=== PATIENT | female | born 1955 | race Caucasian/White ===

== ENCOUNTER 2018-06-18 08:02 | Day surgery (SDC) | payer BC, OTHER ==
[2018-06-18] MEDS ORDERED: Ringers Lactate 1,000 ML IV ONE (08:34)
[2018-06-18] MEDS ORDERED: LIDOCAINE 1% W/EPI 1:100,000 MDV 50 ML VIAL ONE (09:09)
--- OUTSIDE RECORDS SUMMARY | 2018-06-18 09:10 | XMS REPORT | Continuity of Care Document ---
:1955 Author Organization Interface Problems Problem Status Onset Classification Date Comments Source Date Reported S06.9X9A - UNSP Active 03/19/20 [facility] INTRACRANIAL 17 [place] INJURY W LO LEFT OCCIPITAL Active 03/09/20 [facility] SKULL FX S/P 17 Medical FALL IN BATH Center HTN (<span Resolved Problem 03/23/2017 [facility] ID="[id number] [facility] ">Confirmed</spa [place] n>) [facility] Hypertension Resolved Problem 03/23/2017 [facility] TRAUM SUBRAC HEM Active [facility] LOC OF UNSP Medical DURATION, Center Medications Medication Details Route Status Patient Ordering Order Source Instructions Provider Date Levetiracetam 500 500 mg=1 tab, Active 03/10[facility] MG Oral Tablet PO, [id number], 2017 Medical # 12 tab, 0 Center Refill(s) sodium chloride 1,000 mL, Inactive 03/10[facility] 0.9% 1000 ml INJ Rate: 50 2017 [facility] 1,000 mL ml/hr, Infuse [place] over: 20 hr, Route: IV, Dosing Weight 59.091 kg, Total Volume: 1,000, Start date: 03/09/17 20:30:00 CDT, Duration: 1 doses or times, Stop date: 03/10/17 16:29:00 CDT Reglan 10 mg, 2 mL, No Longer [facility] Route: IVP, Active 2016 Medical Drug form: Center INJ, Q6H, Dosing Weight 59.091, kg, PRN Nausea & Vomiting, Start date: 03/09/17 20:29:00 CDT, Duration: 30 day, Stop date: 04/08/17 20:28:00 CDTNotes: (Same as: Reglan) Levetiracetam 500 mg, 1 No Longer [facility] tab, Route: Active 2016 Medical PO, Drug Center form: TAB, [id number], Dosing Weight 59.091, kg, Start date: 03/09/17 18:00:00 CDT, Duration: 30 day, Stop date: 04/08/17 6:00:00 CDTNotes: (Same as:Anatoly) Chlordiazepoxide 25 mg, 1 cap, No Longer [facility] Hydrochloride 25 Route: PO, Active 2016 Medical MG Oral Capsule Drug form: [place] CAP, Q6H, Dosing Weight 59.091, kg, PRN Withdrawal, Alcohol Withdrawal, Start date: 03/09/17 16:47:00 CDT, Duration: 30 day, Stop date: 04/08/17 16:46:00 CDT Docusate Sodium 100 mg=1 cap, Active [facility] 100 MG Oral PO, Daily, 2017 Medical Capsule [Colace] PRN as needed Center for constipation, 0 Refill(s) Zyrtec =1 tab, PO, Active [place] Daily, 0 2016 Medical Refill(s) [place] propranolol 20 mg 20 mg=1 tab, Active [facility] oral tablet PO, Daily 2016 [facility] Dextrose 50% 25 gm, Route: Inactive [facility] Syringe IVP, Dosing 2017 Medical Weight [place] 59.091, kg, ONCE, STAT, Start date: 03/09/17 11:18:00 CDT, Stop date: 03/09/17 11:18:00 CDT Saline Flush 0.9% 10 ml, Route: No Longer [facility] IVP, Drug Active 2016 Medical Form: INJ, [place] Dosing Weight 59.091, kg, Q12H, Start date: 03/09/17 9:00:00 CDT, Duration: 30 day, Stop date: 04/07/17 21:00:00 CDTNotes: Same as: BD Posiflush Sterile Famotidine 20 mg, 2 mL, No Longer [facility] Route: IVP, Active 2016 Medical Drug form: [place] INJ, Q12H, Dosing Weight 59.091, kg, Start date: 03/09/17 9:00:00 CDT, Duration: 30 day, Stop date: 04/07/17 21:00:00 CDTNotes: (Same as: Pepcid) Can be dilute in 5-10cc NS IVP: Slow IV push over at least 2 minutes. Docusate Sodium 100 mg, 1 No Longer [place] 100 MG Oral cap, Route: Active 2016 Medical Capsule PO, Drug Center form: CAP, Q12H, Dosing Weight 59.091, kg, Start date: 03/09/17 9:00:00 CDT, Duration: 30 day, Stop date: 04/07/17 21:00:00 CDTNotes: (Same as: Colace) (Do Not Crush) sennosides, [facility] 8.6 mg, 1 No Longer [place] tab, Route: Active 2016 Medical PO, Drug Center Form: TAB, Dosing Weight 59.091, kg, Q12H, Start date: 03/09/17 9:00:00 CDT, Duration: 30 day, Stop date: 04/07/17 21:00:00 CDTNotes: (Same as: Senokot) Chlordiazepoxide 25 mg, 1 cap, Inactive [place] Hydrochloride 25 Route: PO, 2017 Medical MG Oral Capsule Drug form: [place] CAP, ONCE, Dosing Weight 59.091, kg, Alcohol Withdrawal, Start date: 03/09/17 7:12:00 CDT, Stop date: 03/09/17 7:12:00 CDT Thiamine 100 mg, 1 mL, Inactive [place] Route: IV, 2017 Medical ONCE, Dosing Center Weight 59.091, kg, Priority: STAT, Start date: 03/09/17 7:11:00 CDT, Stop date: 03/09/17 7:11:00 CDTNotes: (Same As: Vitamin B1) Iohexol 100 mL, Inactive [place] Route: IVP, 2017 Medical Drug Form: Center SOLN, Dosing Weight 59.091, kg, ONCALL, STAT, Start date: 03/09/17 6:29:00 CDT, Duration: 1 doses or times, Dose=2.2ml/kg , Max mgfp=625av -- "To be infused by Radiology Staff ONLY" Insulin regular 6 unit, 0.06 No Longer [place] mL, Route: Active 2016 Medical SUB-Q, Drug Center form: SOLN, Sliding Scale, Dosing Weight 59.091, kg, PRN Blood Glucose Results, Start date: 03/09/17 5:29:00 CDT, Duration: 30 day, Stop date: 04/08/17 5:28:00 CDTNotes: (Same as: Humulin R) Roll in palms of hands gently; Do not shake vigorously. "single patient use only" (Restricted to patients requiring a dose > 60 units) WASTE: F/P - Black; E - Municipal Trash Bin Stable for 28 days at room temperature Expires in days from _Date Saline Flush 0.9% 10 ml, Route: No Longer [facility] IVP, Drug Active 2016 Medical Form: INJ, Center Dosing Weight 59.091, kg, PRN, PRN Line Flush, Start date: 03/09/17 5:29:00 CDT, Duration: 30 day, Stop date: 04/08/17 5:28:00 CDTNotes: Same as: BD Posiflush Sterile Bisacodyl 10 mg, 1 No Longer [facility] supp, Route: Active 2017 Medical ND, Drug Center form: SUPP, Daily, Dosing Weight 59.091, kg, PRN Constipation, Start date: 03/09/17 5:29:00 CDT, Duration: 30 day, Stop date: 04/08/17 5:28:00 CDTNotes: (Same As: Dulcolax, Bisco-Lax) Labetalol 10 mg, 2 mL, No Longer [facility] Route: IVP, Active 2016 Medical Drug form: Center INJ, Q15Min, Dosing Weight 59.091, kg, PRN Hypertension, Start date: 03/09/17 5:29:00 CDT, Duration: 3 doses or times, Stop date: 03/25/17 0:00:00 CDT Ondansetron 4 mg, 2 mL, No Longer [facility] Route: IVP, Active 2016 Medical Drug form: Center INJ, Q8H, Dosing Weight 59.091, kg, PRN Nausea & Vomiting, Start date: 03/09/17 5:29:00 CDT, Duration: 30 day, Stop date: 04/08/17 5:28:00 CDTNotes: (Same as: Zofran) MEDICATION WASTE Product Size: 4 mg Product Wasted: 0 mg Morphine 2 mg, 1 mL, No Longer [place] Route: IVP, Active 2016 Medical Drug form: [place] INJ, Q4H, Dosing Weight 59.091, kg, PRN Pain Score 7-10, Start date: 03/09/17 5:29:00 CDT, Duration: 30 day, Stop date: 04/08/17 5:28:00 CDTNotes: (Same as:MORPhine Sulfate) Propranolol 10 mg, 1 tab, No Longer [place] Route: PO, Active 2016 Medical Drug form: [place] TAB, Daily, Dosing Weight 59.091, kg, Priority: STAT, Start date: 03/09/17 5:27:00 CDT, Duration: 30 day, Stop date: 04/07/17 9:00:00 CDTNotes: Give with food. (Same as: Inderal) Sodium Chloride 1,000 mL, Inactive [place] 0.154 MEQ/ML Rate: 100 2016 Medical Injectable ml/hr, Infuse Center Solution over: 10.1 hr, Route: IV, Dosing Weight 59.091 kg, Total Volume: 1,011.2, Start date: 03/09/17 5:12:00 CDT, Duration: 1 doses or times, Stop date: 03/09/17 15:17:00 CDT Sodium Chloride 1,000 mL, Inactive [place] 0.9% IV 1000 mL Rate: 75 2016 Medical ml/hr, Infuse Center over: 13.3 hr, Route: IV, Dosing Weight 59.091 kg, Total Volume: 1,000, Start date: 03/09/17 4:55:00 CDT, Duration: 30 day, Stop date: 04/08/17 4:54:00 CDT Keppra 1,000 mg, Inactive [place] Route: IV, 2017 Medical ONCE, Dosing Center Weight 59.091, kg, Priority: STAT, Start date: 03/09/17 4:55:00 CDT, Stop date: 03/09/17 4:55:00 CDTNotes: Same as Keppra Mix with 100 mL NS, LR or D5W MEDICATION WASTE Product Size: 500 mg Product Wasted: ___ mg Saline Flush 0.9% 10 mL, Route: No Longer [place] IVP, Drug Active 2016 Medical Form: INJ, Center Dosing Weight 59.091, kg, PRN, PRN Line Flush, Start date: 03/09/17 4:49:00 CDT, Duration: 30 day, Stop date: 04/08/17 4:48:00 CDTNotes: Same as: BD Posiflush Sterile Allergies, Adverse Reactions, Alerts Substance Category Reaction Severity Reaction Status Date Comments Source type Reported Adhesive Tape Assertion Drug Active [facility] allergy [place] penicillins Assertion Drug Active [facility] allergy [place] Immunizations Immunization Date Given Site Status Last Updated Comments Source Results Order Name Results Value Reference Date Interpretation Comments Source Range Brain wo Brain wo CT Radiation Dose DLP 872 mGy-cm 03/20 - OPID contrast CT contrast CT /2016 - [place] Patient Name: HAYLEE HICKS : 1955; Age: 61 years Female Read by: Sammy Crouch MD Dictated Date/time: 03/20/17 16:33 MR: [id number] Electronically Signed by: Sammy Crouch MD 03/20/17 16:33 FINAL REPORT - - Study: Brain wo contrast CT 03/20/2017 1:29 PM CDT Clinical Indication: S06.9X9A Unspecified intracranial injury with loss of consciousness of unspecified duration, initial encounter - S06.9X9A Unspecified intracranial injury with loss of consciousn Read by: Sammy Crouch MD ess of unspecified duration, initial encounter. Dictated Date/time: 03/20/17 14:13 Electronically Signed by: Sammy Crouch MD 03/20/17 14:19 FINAL REPORT COMPARISON: 03/09/2017. TECHNIQUE: CT images were obtained from the foramen magnum to the vertex without the use of intravenous contrast on a multidetector CT. Coronal and sagittal reconstructions were obtained. FINDINGS: BRAIN PARENCHYMA: There is generalized brain parenchymal atrophy related to the patient's age. Nonspecific periventricular white matter disease changes are noted. Atherosclerotic calcifications are present within the carotid siphons and distal vertebral arteries. There are no focal mass lesions on this noncontrast head CT. There is no mass effect, midline shift or edema. Decreased subacute bifron arpita subdural hematomas measuring 2-3 mm. Resolved bilateral temporal subarachnoid hemorrhage. There is no noncontrast CT evidence of a subacute stroke. Chronic lacunar infarction in the right basal gang daniel. The pineal, sellar, brainstem, cerebellum and skull base regions appear normal. VENTRICLES: The lateral ventricles, third and fourth ventricles appear normal. The basilar cisterns are normal. ORBITS, MASTOIDS AND PARANASAL SINUSES: The visualized orbits are normal. The visualized paranasal sinuses are normal. The mastoid air cells are clear. SKULL: There are no calvarial abnormalities seen. If there is further concern for intracranial pathology or acute stroke, MRI of the brain may be performed for complete assessment. IMPRESSION: Marked improvement when compared to 03/09/2017 with decreased subarachnoid and subdural hemorrhage. SL: [id number] Elbow 3 Elbow 3 EXAM: XR LEFT ELBOW 3 VIEWS 03/10 - [facility] views DX views - [facility] DATE: 03/10/2017 9:43 AM CDT Read by: Cooper Mcintyre MD Dictated Date/time: 03/10/17 16:19 Electronically Signed by: Cooper Mcintyre MD 03/10/17 16:21 FINAL REPORT INDICATION: - pain, swelling s/p fall COMPARISON: None available TECHNIQUE: AP, lateral and oblique radiographs of the elbow FINDINGS: No acute fracture or malalignment is identified. There is no excessive joint fluid. Mild subcutaneous edema/contusion is seen along the medial aspect of elbow. IMPRESSION: 1. No acute fracture or malalignment. 2. Mild subcutaneous edema/contusion along the medial aspect of elbow. DRUG SCREEN UDS Note See Note 03/10 [facility] *NA* [place] (03/09/17 8:52 PM) DRUG SCREEN U [facility]ab [facility] [place] (03/09/17 8:52 PM) DRUG SCREEN U Benzodia Negative Negative 03/10 [facility]* [place] (03/09/17 8:52 PM) DRUG SCREEN U Cocaine Negative Negative 03/10 [facility]* [place] (03/09/17 8:52 PM) DRUG SCREEN U Amph Scr Negative Negative 03/10 [facility]* [place] (03/09/17 8:52 PM) DRUG SCREEN U Keyonna Scr Negative Negative 03/10 Medical *NA* Center (03/09/17 8:52 PM) DRUG SCREEN U Opiate Scr Negative Negative 03/10 [facility] *NA* Center (03/09/17 8:52 PM) DRUG SCREEN U Phencyc Negative Negative 03/10 [place] [facility] *NA* Center (03/09/17 8:52 PM) BACTERIAL - MRSA by PCR Negative 03/10 [place] [facility] Medical (03/09/17 7:10 PM) Center CARDIAC Troponin-I null 0.00 - 03/09 [place] ENZYMES 0.40 [facility] CARDIAC Total CK 567 unit/L 12 - 191 03/09 [facility] ENZYMES [facility] CARDIAC Troponin-T null 0.000 - 03/09 [place] ENZYMES 0.100 [facility] CARDIAC CK-MB INDEX 0.4 0.0 - 2.5 03/09 [facility] ENZYMES [facility] CARDIAC CK MB 2.1 ng/mL 0.5 - 3.6 03/09 [place] ENZYMES [facility] BLOOD BANK ABO/Rh A POS 03/09 [place] RESULTS [facility] BLOOD BANK Antibody Negative 03/09 [facility] RESULTS Scr [facility] (03/09/17 5:17 AM) Center CARDIAC Troponin-I null 0.00 - 03/09 [facility] ENZYMES 0.40 [facility] CARDIAC Total CK 565 unit/L - 191 03/09 [facility] ENZYMES [facility] CARDIAC Troponin-T null 0.000 - 03/09 [place] ENZYMES 0.100 [facility] CARDIAC CK MB 2.8 ng/mL 0.5 - 3.6 03/09 [place] ENZYMES [facility] CARDIAC CK-MB INDEX 0.5 0.0 - 2.5 03/09 [place] ENZYMES [facility] CHEM PANEL Lactic Acid 2.2 mMol/L 0.5 - 2.2 03/09 [place] Lvl [facility] ELECTROLYTE AGAP 15.8 meq/L 10.0 - 03/09 [facility] S 20.0 Medical [place] ELECTROLYTE Calcium Lvl 8.4 mg/dL 8.5 - 10.5 03/09 [place] S [facility] ELECTROLYTE Potassium 3.8 meq/L 3.5 - 5.1 03/09 [facility] Lvl [facility] ELECTROLYTE Chloride Lvl 100 meq/L 95 - 109 03/09 [facility] [address] [place] [address] ELECTROLYTE CO2 25 meq/L 24 - 32 03/09 [facility] ELECTROLYTE Sodium Lvl 137 meq/L 135 - 145 03/[address] ELECTROLYTE Glucose Lvl 82 mg/dL 70 - 99 03/[address] ELECTROLYTE BUN 7 mg/dL 7 - 22 03/[address] ELECTROLYTE Creatinine 0.50 mg/dL 0.50 - 03/09 [facility] Lvl 1.40 [facility] ELECTROLYTE eGFR 104 03/09 Result Comment: The eGFR is calculated using the CKD-EPI formula. In most young, healthy individuals the eGFR will be > 90 mL/min/1.73m2. The eGFR declines with age. An eGFR of 60-89 may be normal in [facility] mL/min/1.7 some populations, particularly the elderly, for whom the CKD-EPI formula has not been extensively validated. Use of the eGFR is not recommended in the following populations: [address] Individuals with unstable creatinine concentrations, including patients and those with serious co-morbid conditions. Patients with extremes in muscle mass or diet. The data above are obtained from the National Kidney Disease Education Program (NKDEP) which additionally recommends that when the eGFR is used in patients with extremes of body mass index for purposes of drug dosing, the eGFR should be multiplied by the estimated BMI. HEMATOLOGY Macrocyte 1+ None Seen 03/09 [facility] *ABN* Center (03/09/17 5:17 AM) HEMATOLOGY Segs-Bands # 5.1 K/CMM 1.5 - 8.1 03/09 [facility] [address] [place] [address] HEMATOLOGY Lymphocytes 1.3 K/CMM 1.0 - 5.5 03/09 [facility]2016 [facility] HEMATOLOGY Monocytes # 0.5 K/CMM 0.0 - 0.8 03/[address] HEMATOLOGY Eosinophils 0.2 % 0.0 - 4.0 03/[address] HEMATOLOGY Basophils 0.3 % 0.0 - 1.0 03/[address] HEMATOLOGY Monocytes 7.5 % 2.0 - 12.0 03/[address] HEMATOLOGY Lymphocytes 18.3 % 20.0 - 07/14 [facility] 40.0 [facility] HEMATOLOGY Segs 73.7 % 45.0 - 03/09 [facility] 75.0 [facility] HEMATOLOGY RBC 3.54 M/CMM 4.20 - 03/09 [facility] 5.40 /2016 [facility] HEMATOLOGY Hgb 12.0 g/dL 12.0 - 03/09 [facility] 16.0 [facility] HEMATOLOGY Hct 35.6 % 36.0 - 03/09 [facility] 48.0 [facility] HEMATOLOGY MCV 100.5 fL 80.0 - 03/09 [facility] 98.0 [facility] HEMATOLOGY MCH 33.7 pg 27.0 - 03/09 [facility] 31.0 [facility] HEMATOLOGY MCHC 33.6 g/dL 32.0 - 03/09 [facility] 36.0 [facility] HEMATOLOGY RDW 13.7 % 11.5 - 03/09 [facility] 14.5 [facility] HEMATOLOGY WBC 6.9 K/CMM 3.7 - 10.4 03/09 [facility] HEMATOLOGY Platelet 96 K/CMM 133 - 450 03/[address] [place] [address] HEMATOLOGY MPV 8.4 fL 7.4 - 10.4 03/[address] [place] [address] HEMATOLOGY Estimated % 0.7 % 0.0 - 7.5 03/09 [facility] Lysis [facility] HEMATOLOGY G-value 7.1 K d/sc 5.0 - 11.6 03/09 [facility] [address] [place] [address] HEMATOLOGY Max 59 mm 52 - 71 03/09 [facility] HEMATOLOGY Angle Rapid 75 degrees 64 - 80 03/09 2016 [facility] HEMATOLOGY K-time Rapid 1.5 min 0.6 - 2.3 03/[address] [place] [address] HEMATOLOGY R-time Rapid 0.5 min 0.4 - 0.7 03/[address] [place] [address] HEMATOLOGY [place] 0.4 min 03/09 [facility] HEMATOLOGY ACT (TEG) 97 s 86 - 118 03/[address] Brain/Neck Brain/Neck EXAM: CTA BRAIN 03/09 - [facility] CTA CTA - Medical EXAM: CTA NECK This report was dictated by a Operational Test Mechanic/ Fellow. I have personally reviewed the images as Center well as the Resident's interpretation and agree with the findings. Read by: Alejandro Villatoro MD Resident: Alejandro Villatoro MD Dictated Date/time: 03/09/17 06:58 DATE: 03/09/2017 6:10 AM CDT Electronically Signed by: Amanda Lugo 03/09/17 07:33 FINAL REPORT INDICATION: - C7 L TP fx, syncope, SAH COMPARISON: Brain CT and cervical spine CT obtained the same day TECHNIQUE: Rapid acquisition spiral CT images of the brain and neck were obtained between the aortic arch and the cranial vertex during intravenous infusion of iodinated contrast for the purposes of CT angiography . 3-D CT angiographic images are created using MIP technique at the acquisition workstation. The source images are also presented for interpretation. IV contrast: 65 cc Omnipaque DLP: 1659 mGy-cm FINDINGS: NECK CTA: Aortic arch: The great vessels originate from the aortic arch in the standard configuration. No origin stenosis is identified. The vertebral artery origins are patent bilaterally. Carotid arteries: There are atherosclerotic changes at the carotid bifurcations and carotid siphons, without flow-limiting stenosis by NASCET criteria. There is no evidence of vascular injury. Vertebral arteries: The vertebral arteries have a normal course, caliber and contour. The soft tissues of the neck and other incidental structures are normal. BRAIN CTA: The anterior and posterior circulations have a normal appearance and a standard branching pattern. No branch occlusion, vascular injury, arteritis, vascular malformation or aneurysm is identified. Both posterior communicating arteries are patent. The deep cerebral veins and major venous sinuses are normal. The brain parenchyma and other incidental structures are unremarkable. IMPRESSION: Normal CTA of the neck and brain. No traumatic vascular injury. (All qualitative and quantitative assessments of carotid bifurcation and proximal internal carotid artery stenosis are made referencing the distal internal carotid artery {NASCET criteria}.) Brain wo Brain wo EXAM: CT BRAIN WITHOUT CONTRAST 03/09 [facility] contrast CT contrast CT /2017 - Medical This report was dictated by a Operational Test Mechanic/Fellow. I have personally reviewed the images as Center well as the Resident's interpretation and agree with the findings. DATE: 03/09/2017 6:10 AM CDT Read by: Alejandro Villatoro MD Resident: Alejandro Villatoro MD Dictated Date/time: 03/09/17 06:42 Electronically Signed by: Amanda Lugo 03/09/17 07:18 FINAL REPORT INDICATION: - SAH, Skull fx L occipital COMPARISON: Brain CT dated 03/09/2017 TECHNIQUE: Routine axial CT images of the brain were obtained. Reformatted images in the sagittal and coronal plane were included. IV contrast: None. DLP: 1659 mGy-cm (this includes the head and neck CTA). FINDINGS: Subarachnoid hemorrhage in both temporal lobes remains similar in distribution as compared to the previous exam. No definite parenchymal contusions are identified. The ventricles and sulci are prominent as are result of volume loss. The bilateral frontal subdural space became larger in the interval, concerning for a small subdural hygromas. A left occipital nondisplaced fracture is again identified. The paranasal sinuses, orbits and mastoids are unremarkable. IMPRESSION: 1. Evolving subarachnoid hemorrhage. 2. Possible bilateral frontal subdural hygromas. 3. Stable left occipital bone fracture. Brain-Outsi Brain-Outsid EXAM: CT BRAIN WITHOUT CONTRAST 03/09 - [facility] Consult e Consult CT - Medical CT This report was dictated by a Operational Test Mechanic/Fellow. I have personally reviewed the images as Center well as the Resident's interpretation and agree with the findings. DATE: 03/09/2017 4:49 AM CDT Read by: Alejandro Villatoro MD Resident: Alejandro Villatoro MD Dictated Date/time: 03/09/17 06:46 Electronically Signed by: Juan F Duvall MD 03/09/17 09:01 FINAL REPORT INDICATION: - outside films COMPARISON: None TECHNIQUE: Formal interpretation of a CT examination of the brain performed at an outside institution is requested after patient transfer for a higher level of care. The study was performed at [facility] on March 09, 2017 at 12:31 AM area the exam consists of 35 images. FINDINGS: Scalp soft tissue swelling is present in the left parietal region posteriorly without underlying fracture. Intracranially there is posttraumatic subarachnoid hemorrhage inferior to the temporal lobes bilaterally as well as between the gyrus rectus and orbital frontal gyri on the right. No subdural blood prod ucts or intraventricular hemorrhage is detected. No parenchymal hematoma is evident. The brain has normal attenuation and alba-white matter distinction. The ventricles are normal. The basal cisterns and sulci are normal in size. There is no chronic abnormality aside from mild generalized cerebral atrophy. The paranasal sinuses, orbits and mastoids are unremarkable. Incidental imaging of the skull and skull base is also unremarkable. IMPRESSION: 1. No midline shift, herniation, or hydrocephalus. 2. Subsequently detected nondisplaced occipital bone fracture on the left is not visible on this examination in the absence of bone algorithm images which are not available. 3. Small bilateral temporal and right inferior frontal subarachnoid hemorrhages. 4. Bilateral extra-axial hypodense collections detected on the subsequent follow-up CT study performed at [facility] are not present on this exam indicating that the latter represent acute subdur al CSF collections rather than a chronic abnormality. The current report differs from the outside imaging report in that no temporal lobe or inferior frontal lobe contusion is felt to be present. Also, the preliminary report suggested that there might be a tentorial subdural hematoma but I do not see evidence of the latter. Spine-Outsi Spine-Outsid EXAM: CT CERVICAL SPINE WITHOUT CONTRAST 03/09 - [facility] Consult e Consult CT /2016 - Medical CT This report was dictated by a Operational Test Mechanic/Fellow. I have personally reviewed the images as Center well as the Resident's interpretation and agree with the findings. DATE: 03/09/2017 4:49 AM CDT Read by: Alejandro Villatoro MD Resident: Alejandro Villatoro MD Dictated Date/time: 03/09/17 05:03 Electronically Signed by: Papo Zepeda MD 03/09/17 06:20 FINAL REPORT INDICATION: - outside films ADDITIONAL INFORMATION: None. COMPARISON: None available TECHNIQUE: Volumetric acquisition of the cervical spine without contrast. Axial, sagittal and coronal reconstructions. Examination originally performed at 0032 hours IV contrast: None. DLP: 1002.5 mGy-cm UT SECTION: ER FINDINGS: The spine is imaged from the skull base to the level of T2. No acute fracture or malalignment of the cervical spine is identified. There is a nondisplaced left occipital fracture. Moderate narrowing at C5-C6 with small anterior and posterior disc disc osteophyte complexes. No significant spinal canal stenosis. Moderate disc space narrowing at C6-C7 with small posterior disc osteophyte complex, no significant spinal canal stenosis. Grade 1 retrolisthesis of C7 on T1 secondary to bilateral moderate facet hypertrophy. No acute soft tissue abnormality is identified. There is calcification at the bilateral carotid bulbs. There is biapical pleural thickening and scarring. IMPRESSION: 1. No acute fracture or malalignment of the cervical spine. 2. Nondisplaced left occipital fracture. 3. Moderate degenerative of the cervical spine, most pronounced from C5 to T1. Vital Signs Vital Sign Value Date Comments Source Respitory Rate 14 03/10/2017 [facility] Systolic (mm Hg) 142 03/10/2017 [facility] Diastolic (mm Hg) 85 03/10/2017 [facility] Temperature Oral (F) 98.7 F 03/10/2017 [facility] Systolic (mm Hg) 147 03/10/2017 [facility] Diastolic (mm Hg) 88 03/10/2017 [facility] Respitory Rate 21 03/10/2017 [facility] Systolic (mm Hg) 135 03/10/2017 [facility] Diastolic (mm Hg) 86 03/10/2017 [facility] Respitory Rate 18 03/10/2017 [facility] Temperature Oral (F) 97.6 F 03/10/2017 [facility] Temperature Oral (F) 98.1 F 03/10/2017 [facility] Weight 59.091 03/09/2017 [facility] BMI Calculated 21.03 03/09/2017 [facility] Height 167.64 cm 03/09/2017 [facility] Weight 59.091 03/09/2017 [facility] BMI Calculated 21.03 03/09/2017 [facility] Height 167.64 cm 03/09/2017 [facility] Heart Rate 98 03/09/2017 [facility] Encounters Location Location Encounter Encounter Reason Attending ADM DC Status Source Details Type Number For Provider Date Date Visit [facility] [id number] [place] 03/09 03/10 [facility] /2016 [facility] Outpt Diag [id number] Amarjit 03/20 03/21 [facility] [id number] TRAUMA 03/22 [facility] Justice Procedures Procedure Code Date Perfomer Comments Source Appendix operation [id number] [facility] [place] Breast [id number] [facility] [place] LASIK [id number] [facility] [place] Appendix operation [id number] [facility] Breast [id number] [facility] LASIK [id number] [facility]
[2018-06-18] MEDS ORDERED: LIDOCAINE 1% MPF 5 ML VIAL ONE (10:35)
[2018-06-18] MEDS ORDERED: MIDAZOLAM HCL 2 MG/2 ML INJ ONE (10:35)
[2018-06-18] MEDS ORDERED: FENTANYL CITR 100 MCG/2 ML ONE (10:35)
[2018-06-18] MEDS ORDERED: PROPOFOL 200 MG/20 ML VIAL IV ONE (10:35)
[2018-06-18] MEDS ORDERED: KETOROLAC 30 MG/ML INJ ONE (10:49)
--- NOTE | 2018-06-19 06:20 | OP ---
Date of Procedure: 06/18/2018 Surgeon: Bessie Rice MD Preoperative Diagnosis: Postmenopausal bleeding. Postoperative Diagnoses: Postmenopausal bleeding and cervical stenosis. Procedures Performed: Hysteroscopy, dilation and curettage. Anesthesia: MAC plus paracervical block. Specimens: Endometrial curettings. Complications: No complications. Drains: No drains. Condition: Stable. Ebl: Minimal. Findings: Endometrial cavity was completely unremarkable, slightly vascular endometrium, however did not appear to be too thickened. No intracavitary lesions. The cervix stenotic, dilated to perform hysteroscopy. Description Of Procedure: After informed consent was verified, patient was taken back to the OR for postmenopausal bleeding. She was placed in a supine position upon the operating table. MAC was dalton tored anesthesia care. Conscious sedation was provided. The patient was placed in a dorsal lithotom y position and speculum was placed in the vagina to expose the cervix. The cervix was injected with 1% lidocaine mixed with 1:100,000 epinephrine, 10 cc at 12 o'clock and then 5 cc each at 4 o'clock an d 9 o'clock at cervicovaginal junction for a paracervical block. Prep x3 with Betadine was done usin g a cervical dilator. After the tip of the external os was opened up with a hemostat, dilation was c onducted to 14-Bahraini. Then, direct hysteroscopy was performed through the cervical canal into the u terine cavity without any problems using SlimLine hysteroscope, normal saline for distention medium a nd 30-degree lens, and the cavity visualized, empty vascular endometrium was seen. The scope pulled out after dilating the cervix to 16-Bahraini. A small bone curette was used to perform curettings whic h was scant. These were handed out for pathology. All instruments were removed. Instrument, needle , and sponge counts were correct at the end of the case. The patient tolerated the procedure well. She was recovered from anesthesia in the OR and taken to PACU in stable condition. She will follow u p with me in 1 week. If endometrial curettings comes back negative, the plan to observe the patient. DARON/ARIES Voice ID: [id number] Report ID: [id number]
== END 2018-06-18 11:45 | disposition home or self-care (01) ==
LOC: OR 08:02
PROVIDERS: ATTEND Obstetrics & Gynecology
PROC: 0UJD8ZZ Inspection of Uterus and Cervix, Via Natural or Artificial Opening Endoscopic (ICD-10-PCS; 2018-06-18)
PROC: 0UDB7ZX Extraction of Endometrium, Via Natural or Artificial Opening, Diagnostic (ICD-10-PCS; principal; 2018-06-18 10:00)
DX: N95.0 Postmenopausal bleeding (principal); N88.2 Stricture and stenosis of cervix uteri; I10 Essential (primary) hypertension; Z87.891 Personal history of nicotine dependence; Z82.49 Family history of ischemic heart disease and other diseases of the circulatory system
CPT/HCPCS: 88305; J2250; J3010

== ENCOUNTER 2018-07-22 06:52 | Day surgery (SDC) | payer BC, OTHER ==
--- OUTSIDE RECORDS SUMMARY | 2018-07-22 06:58 | XMS REPORT | Continuity of Care Document ---
:1955 Author Organization Interface Problems Problem Status Onset Classification Date Comments Source Date Reported S06.9X9A - UNSP Active 03/19/20 [facility] INTRACRANIAL 17 [place] INJURY W LO LEFT OCCIPITAL Active 03/09/20 [facility] SKULL FX S/P 17 Medical FALL IN BATH Center HTN (<span Resolved Problem 03/23/2017 [facility] ID="[id number] [facility] ">Confirmed</spa [place] n>) [facility] Hypertension Resolved Problem 03/23/2017 OP[facility] TRAUM SUBRAC HEM Active [facility] LOC OF UNSP Medical DURATION, Center Medications Medication Details Route Status Patient Ordering Order Source Instructions Provider Date Levetiracetam 500 500 mg=1 tab, Active 03/10[facility] MG Oral Tablet PO, Y72O-[id number], 2017 Medical # 12 tab, 0 Center Refill(s) sodium chloride 1,000 mL, Inactive 03/10[facility] 0.9% 1000 ml INJ Rate: 50 2017 [facility] 1,000 mL ml/hr, Infuse [place] over: 20 hr, Route: IV, Dosing Weight 59.091 kg, Total Volume: 1,000, Start date: 03/09/17 20:30:00 CDT, Duration: 1 doses or times, Stop date: 03/10/17 16:29:00 CDT Reglan 10 mg, 2 mL, No Longer [facility] Route: IVP, Active 2016 Medical Drug form: Center INJ, Q6H, Dosing Weight 59.091, kg, PRN Nausea & Vomiting, Start date: 03/09/17 20:29:00 CDT, Duration: 30 day, Stop date: 04/08/17 20:28:00 CDTNotes: (Same as: Reglan) Levetiracetam 500 mg, 1 No Longer [facility] tab, Route: Active 2016 Medical PO, Drug Center form: TAB, [id number]-70, Dosing Weight 59.091, kg, Start date: 03/09/17 18:00:00 CDT, Duration: 30 day, Stop date: 04/08/17 6:00:00 CDTNotes: (Same as:Anatoly) Chlordiazepoxide 25 mg, 1 cap, No Longer [facility] Hydrochloride 25 Route: PO, Active 2016 Medical MG Oral Capsule Drug form: [place] CAP, Q6H, Dosing Weight 59.091, kg, PRN Withdrawal, Alcohol Withdrawal, Start date: 03/09/17 16:47:00 CDT, Duration: 30 day, Stop date: 04/08/17 16:46:00 CDT Docusate Sodium 100 mg=1 cap, Active [facility] 100 MG Oral PO, Daily, 2017 Medical Capsule [Colace] PRN as needed Center for constipation, 0 Refill(s) Zyrtec =1 tab, PO, Active [place] Daily, 0 2016 Medical Refill(s) [place] propranolol 20 mg 20 mg=1 tab, Active [facility] oral tablet PO, Daily 2016 [facility] Dextrose 50% 25 gm, Route: Inactive [facility] Syringe IVP, Dosing 2017 Medical Weight [place] 59.091, kg, ONCE, STAT, Start date: 03/09/17 11:18:00 CDT, Stop date: 03/09/17 11:18:00 CDT Saline Flush 0.9% 10 ml, Route: No Longer [facility] IVP, Drug Active 2016 Medical Form: INJ, [place] Dosing Weight 59.091, kg, Q12H, Start date: 03/09/17 9:00:00 CDT, Duration: 30 day, Stop date: 04/07/17 21:00:00 CDTNotes: Same as: BD Posiflush Sterile Famotidine 20 mg, 2 mL, No Longer [facility] Route: IVP, Active 2016 Medical Drug form: [place] INJ, Q12H, Dosing Weight 59.091, kg, Start [...] (Same as: Colace) (Do Not Crush) sennosides, SNF 8.6 mg, 1 No Longer [place] tab, Route: Active 2016 Medical PO, Drug Center Form: TAB, Dosing Weight 59.091, kg, Q12H, Start date: 03/09/17 9:00:00 CDT, Duration: 30 day, Stop date: 04/07/17 21:00:00 CDTNotes: (Same as: Senokot) Chlordiazepoxide 25 mg, 1 cap, Inactive [place] Hydrochloride 25 Route: PO, 2017 Medical MG Oral Capsule Drug form: [place] CAP, ONCE, Dosing Weight 59.091, kg, Alcohol [...] 1 doses or times, Dose=2.2ml/kg , Max [id number] -- "To be infused by Radiology Staff [...] Flush 0.9% 10 ml, Route: No Longer [facility] IVP, Drug Active 2016 Medical Form: INJ, Center Dosing Weight 59.091, kg, PRN, PRN Line Flush, Start date: 03/09/17 5:29:00 CDT, Duration: 30 day, Stop date: 04/08/17 5:28:00 CDTNotes: Same as: BD Posiflush Sterile Bisacodyl 10 mg, 1 No Longer [facility] supp, Route: Active 2017 Medical [place], Drug Center form: SUPP, Daily, Dosing Weight 59.091, kg, PRN Constipation, Start date: 03/09/17 5:29:00 CDT, Duration: 30 day, Stop date: 04/08/17 5:28:00 CDTNotes: (Same As: Dulcolax, Bisco-Lax) Labetalol 10 mg, 2 mL, No Longer [facility] Route: IVP, Active 2016 Medical Drug form: Center INJ, Q15Min, Dosing Weight 59.091, kg, PRN Hypertension, Start date: 03/09/17 5:29:00 CDT, Duration: 3 doses or times, Stop date: 03/25/17 0:00:00 CDT Ondansetron 4 mg, 2 mL, No Longer [facility] Route: IVP, Active 2016 Medical Drug form: Center INJ, Q8H, Dosing Weight 59.091, kg, PRN Nausea & Vomiting, Start date: 03/09/17 5:29:00 CDT, Duration: 30 day, Stop date: 04/08/17 5:28:00 CDTNotes: (Same as: Zofran) MEDICATION WASTE Product Size: 4 mg Product Wasted: 0 mg Morphine 2 mg, 1 mL, No Longer [place] Route: IVP, Active 2016 Medical Drug form: [place] INJ, Q4H, Dosing Weight 59.091, kg, PRN Pain Score 7-10, Start date: 03/09/17 5:29:00 CDT, Duration: 30 day, Stop date: 04/08/17 5:28:00 CDTNotes: (Same as:MORPhine Sulfate) Propranolol 10 mg, 1 tab, No Longer [place] Route: PO, Active 2016 Medical Drug form: [place] TAB, Daily, Dosing Weight 59.091, kg, Priority: [...] Adhesive Tape Assertion Drug Active [facility] allergy [place] penicillins Assertion Drug Active [facility] allergy [place] Immunizations Immunization Date Given Site Status Last Updated Comments Source Results Order Name Results Value Reference Date Interpretation Comments Source Range Brain wo Brain wo CT Radiation Dose DLP 872 mGy-cm 03/20 - [facility] contrast CT contrast CT /2016 - [place] Patient Name: HAYLEE HICKS : 1955; Age: 61 years Female Read by: Sammy Crouch MD Dictated Date/time: 03/20/17 16:33 MR: [id number] Electronically Signed by: Sammy Crouch MD 03/20/17 [...] with decreased subarachnoid and subdural hemorrhage. SL: [id number] Elbow 3 Elbow 3 EXAM: XR LEFT ELBOW 3 VIEWS 03/10 - [facility] views DX views - [facility] Center DATE: 03/10/2017 9:43 AM CDT Read [...] DRUG SCREEN UDS Note See Note 03/10 [facility] *NA* [place] (03/09/17 8:52 PM) DRUG SCREEN U Cannab Scr Negative Negative 03[facility]10 [facility] [place] (03/09/17 8:52 PM) DRUG SCREEN U Benzodia Negative Negative 03/10 [facility]* [place] (03/09/17 8:52 PM) DRUG SCREEN U Cocaine Negative Negative 03/10 [facility]* [place] (03/09/17 8:52 PM) DRUG SCREEN U Amph Scr Negative Negative 03/10 [facility]* [place] (03/09/17 8:52 PM) DRUG SCREEN U Keyonna Scr Negative Negative 03/10 Medical *NA* Center (03/09/17 8:52 PM) DRUG SCREEN U Opiate Scr Negative Negative 03/10 [facility] *NA* Center (03/09/17 8:52 PM) DRUG SCREEN U Phencyc Negative Negative 03/10 [place] [facility] *NA* Center (03/09/17 8:52 PM) BACTERIAL - MRSA by PCR Negative 03/10 [place] [facility] Medical (03/09/17 7:10 PM) Center CARDIAC Troponin-I null 0.00 - 03/09 [place] ENZYMES 0.40 [facility] CARDIAC Total CK 567 unit/L 12 - 191 03/09 [facility] ENZYMES [facility] CARDIAC Troponin-T null 0.000 - 03/09 [place] ENZYMES 0.100 [facility] CARDIAC CK-MB INDEX 0.4 0.0 - 2.5 03/09 [facility] ENZYMES [facility] CARDIAC CK MB 2.1 ng/mL 0.5 - 3.6 03/09 [place] ENZYMES [facility] BLOOD BANK ABO/Rh A POS 03/09 [place] RESULTS [facility] BLOOD BANK Antibody Negative 03/09 [facility] RESULTS Scr [facility] (03/09/17 5:17 AM) Center CARDIAC Troponin-I null 0.00 - 03/09 [facility] ENZYMES 0.40 [facility] CARDIAC Total CK 565 unit/L - 191 03/09 [facility] ENZYMES [facility] CARDIAC Troponin-T null 0.000 - 03/09 [place] ENZYMES 0.100 [facility] CARDIAC CK MB 2.8 ng/mL 0.5 - 3.6 03/09 [place] ENZYMES [facility] CARDIAC CK-MB INDEX 0.5 0.0 - 2.5 03/09 [place] ENZYMES [facility] CHEM PANEL Lactic Acid 2.2 mMol/L 0.5 - 2.2 03/09 [place] Lvl [facility] ELECTROLYTE AGAP 15.8 meq/L 10.0 - 03/09 [facility] S 20.0 Medical [place] ELECTROLYTE Calcium Lvl 8.4 mg/dL 8.5 - 10.5 03/09 [place] S [facility] ELECTROLYTE Potassium 3.8 meq/L 3.5 - 5.1 03/09 [facility] Lvl [facility] ELECTROLYTE Chloride Lvl 100 meq/L 95 - 109 03/09 [facility] [address] [place] [address] ELECTROLYTE CO2 25 meq/L 24 - 32 03/09 [facility] ELECTROLYTE Sodium Lvl 137 meq/L 135 - 145 03/[address] ELECTROLYTE Glucose Lvl 82 mg/dL 70 - 99 03/[address] ELECTROLYTE BUN 7 mg/dL 7 - 22 03/[address] ELECTROLYTE Creatinine 0.50 mg/dL 0.50 - 03/09 [facility] Lvl 1.40 [facility] ELECTROLYTE eGFR 104 03/09 Result Comment: The eGFR is calculated using the CKD-EPI formula. In most young, healthy individuals the eGFR will be > 90 mL/min/1.73m2. The eGFR declines with age. An eGFR of 60-89 may be normal in [facility] mL/min/1.7 some populations, particularly the elderly, for whom the CKD-EPI formula has not been extensively validated. Use of the eGFR is not recommended in the following populations: [address] Individuals with unstable creatinine concentrations, including [...] BMI. HEMATOLOGY Macrocyte 1+ None Seen 03/09 [facility] *ABN* Center (03/09/17 5:17 AM) HEMATOLOGY Segs-Bands # 5.1 K/CMM 1.5 - 8.1 03/09 [facility] [address] [place] [address] HEMATOLOGY Lymphocytes 1.3 K/CMM 1.0 - 5.5 03/09 [facility]2016 [facility] HEMATOLOGY Monocytes # 0.5 K/CMM 0.0 - 0.8 03/[address] HEMATOLOGY Eosinophils 0.2 % 0.0 - 4.0 03/[address] HEMATOLOGY Basophils 0.3 % 0.0 - 1.0 03/[address] HEMATOLOGY Monocytes 7.5 % 2.0 - 12.0 03/[address] HEMATOLOGY Lymphocytes 18.3 % 20.0 - 07/14 [facility] 40.0 [facility] HEMATOLOGY Segs 73.7 % 45.0 - 03/09 [facility] 75.0 [facility] HEMATOLOGY RBC 3.54 M/CMM 4.20 - 03/09 [facility] 5.40 /2016 [facility] HEMATOLOGY Hgb 12.0 g/dL 12.0 - 03/09 [facility] 16.0 [facility] HEMATOLOGY Hct 35.6 % 36.0 - 03/09 [facility] 48.0 [facility] HEMATOLOGY MCV 100.5 fL 80.0 - 03/09 [facility] 98.0 [facility] HEMATOLOGY MCH 33.7 pg 27.0 - 03/09 [facility] 31.0 [facility] HEMATOLOGY MCHC 33.6 g/dL 32.0 - 03/09 [facility] 36.0 [facility] HEMATOLOGY RDW 13.7 % 11.5 - 03/09 [facility] 14. [facility] HEMATOLOGY WBC 6.9 K/CMM 3.7 - 10.4 03/09 [facility] HEMATOLOGY Platelet 96 K/CMM 133 - 450 03/09 [facility] HEMATOLOGY MPV 8.4 fL 7.4 - 10.4 03/09 [facility] HEMATOLOGY Estimated % 0.7 % 0.0 - 7.5 03/09 [facility] Lysis [facility] HEMATOLOGY G-value 7.1 K d/sc 5.0 - 11.6 03/09 [facility] [address] [place] [address] HEMATOLOGY Max 59 mm 52 - 71 03/09 [facility] HEMATOLOGY Angle Rapid 75 degrees 64 - 80 03/09 [facility] HEMATOLOGY K-time Rapid 1.5 min 0.6 - 2.3 03/09 [facility] HEMATOLOGY R-time Rapid 0.5 min 0.4 - 0.7 03/09 [facility] HEMATOLOGY [place] 0.4 min 03/09 [facility] HEMATOLOGY ACT (TEG) 97 s 86 - 118 03/09 [facility] [address] [place] [address] TOXICOLOGY Etoh (%) 0.261 % 03/09 [facility] TOXICOLOGY Ethanol Lvl 261 mg/dL 03/09 Result Comment: [facility] Result(s) called to Ethan Duque at 03/09/2017 05:37 by DRB. Read back OK. Brain wo Brain wo EXAM: CT BRAIN WITHOUT CONTRAST 03/09 - [facility] contrast CT contrast CT /2016 - Medical This report was dictated by a Deployment Specialist/Fellow. I have personally reviewed the images as [...] hygromas. 3. Stable left occipital bone fracture. Brain/Neck Brain/Neck EXAM: CTA BRAIN 03/09 - [facility] CTA CTA /2016 - Medical EXAM: CTA NECK This report was dictated by a Deployment Specialist/ Fellow. I have personally reviewed the images [...] the distal internal carotid artery {NASCET criteria}.) Spine-Outsi Spine-Outsid EXAM: CT CERVICAL SPINE WITHOUT CONTRAST 03/09 [facility] Consult e Consult CT /2016 - Medical CT This report was dictated by a Deployment Specialist/Fellow. I have personally reviewed the images as [...] spine, most pronounced from C5 to T1. Brain-Outsi Brain-Outsid EXAM: CT BRAIN WITHOUT CONTRAST 03/09 - [facility] de Consult e Consult CT - Medical CT This report was dictated by a Deployment Specialist/Fellow. I have personally reviewed the images as [...] of care. The study was performed at [facility] on March 09, 2017 at 12:31 [...] the subsequent follow-up CT study performed at [facility] are not present on this exam indicating [...] do not see evidence of the latter. Vital Signs Vital Sign Value Date Comments Source Respitory Rate 14 03/10/2017 [facility] Systolic (mm Hg) 142 03/10/2017 [facility] Diastolic (mm Hg) 85 03/10/2017 [facility] Temperature Oral (F) 98.7 F 03/10/2017 [facility] Systolic (mm Hg) 147 03/10/2017 [facility] Diastolic (mm Hg) 88 03/10/2017 [facility] Respitory Rate 21 03/10/2017 [facility] Systolic (mm Hg) 135 03/10/2017 [facility] Diastolic (mm Hg) 86 03/10/2017 [facility] Respitory Rate 18 03/10/2017 [facility] Temperature Oral (F) 97.6 F 03/10/2017 [facility] Temperature Oral (F) 98.1 F 03/10/2017 [facility] Weight 59.091 03/09/2017 [facility] BMI Calculated 21.03 03/09/2017 [facility] Height 167.64 cm 03/09/2017 [facility] Weight 59.091 03/09/2017 [facility] BMI Calculated 21.03 03/09/2017 [facility] Height 167.64 cm 03/09/2017 [facility] Heart Rate 98 03/09/2017 [facility] Encounters Location Location Encounter Encounter Reason Attending ADM DC Status Source Details Type Number For Provider Date Date Visit [facility] Inpatient [id number] [place] 03/09 03/10 [facility] /2016 [facility] Diag [id number] Amarjit 03/20 03/21 [facility] [place] [facility] [id number] TRAUMA 03/22 Active [facility] /2016 [place] Procedures Procedure Code Date Perfomer Comments Source Appendix operation [id number] MH [facility] [place] Breast [id number] [facility] augmentation [place] LASIK [id number] MH [facility] [place] Appendix operation [id number] MH [facility] Breast [id number] MH [facility] LASIK [id number] [facility]
[2018-07-22] MEDS ORDERED: NA CHLORIDE 0.9% 500 ML ONE (07:07)
[2018-07-22] MEDS ORDERED: TETRACAINE HCL 0.5% 2ML OPTH ONE (07:20)
[2018-07-22] MEDS ORDERED: CYCLOPENTOLATE 1% OPTH 2 ML ONE (07:20)
[2018-07-22] MEDS ORDERED: LIDOCAINE 2% MPF 5 ML VIAL ONE ×2 (07:20→08:10)
[2018-07-22] MEDS ORDERED: PHENYLEPHRINE 10% OPTH 5ML ONE (07:21)
[2018-07-22] MEDS ORDERED: PROPOFOL 200 MG/20 ML VIAL IV ONE (08:10)
[2018-07-22] MEDS ORDERED: EPINEPHRINE/PF 1 MG/ML AMP ONE (08:12)
[2018-07-22] MEDS ORDERED: BALANCED SALT IRRIG PLAIN 500 ML BTL IRR ONE (08:13)
[2018-07-22] MEDS ORDERED: DUOVISC 1 KIT OPTH ONE (08:13)
[2018-07-22] MEDS ORDERED: MOXIFLOXACIN HCL 10 DROPS/ML **OR USE OPTH ONE (08:14)
[2018-07-22] MEDS: BUPIVACAINE 0.25% PF 10 ML VIAL ONE ×2 (08:21→08:46)
--- NOTE | 2018-07-22 09:03 | P.BOP ---
Preoperative diagnosis: Nuclear sclerotic cataract OS Postoperative diagnosis: None Primary procedure: Phacoemulsification with IOL OS Estimated blood loss: None Anesthesia: Local (Subtenon's infusion with anesthesia for cataract surgery) Complications: None Implants: [id number] +23.5 Transferred to: Other (Day surgery) Condition: Good
[2018-07-22] MEDS ORDERED: NS 0.9% VIAL 10 ML ONE (09:18)
[2018-07-22] MEDS ORDERED: CEFAZOLIN/SWI 1gm 1 GM/10 ML SYR ONE (12:13)
--- NOTE | 2018-07-22 20:33 | OP ---
Date of Procedure: 07/22/2018 Surgeon: Ness Olivas MD Anesthesiologist: 1. Soumya Palmer CRNA. 2. Rick Ellis M.D. Preoperative Diagnosis: Nuclear sclerotic and cortical cataract, left eye. Operation Performed: Phacoemulsification with intraocular lens implant, left eye. Anesthesia: Per Cataract Surgery. Complications: None. Description Of Procedure: In day surgery, the patient was prepped with Betadine and draped. A conju nctival incision was made in the inferior nasal quadrant with Shyla scissors. A sub-Tenon block c onsisting of a 1:1 mixture of 2% Xylocaine and 0.25% bupivacaine was placed through the conjunctival incision with a blunt cannula. A [place] balloon was placed over the eye and the patient was transferr ed to the operating room. In the operating room the patient was prepped and draped in the usual sterile fashion for ophthalmic surgery. A lid speculum was placed in the left eye. Two paracentesis sites were made superiorly and inferiorly in the limbal cornea. Viscoat was placed in the anterior chamber and a crescent blade wa s used to make a corneal groove and tunnel, and a keratome was used to enter the anterior chamber. P rovisc was placed in the anterior chamber and a 360 degree capsulotomy was performed with a cystitome . The lens was hydrodissected with BSS and rotated freely. The lens was removed with a stop and cho p technique. A 5.16 phaco CDE was used to remove the lens. Residual cortex was removed with the irr igation and aspiration. Provisc was placed in the capsular bag. A ZCB00+23.5 lens was placed in the capsular bag without complications. Irrigation and aspiration were used to remove residual viscoela stic. The paracentesis sites were hydrated with BSS. The wound and paracentesis sites were inspecte d and found to be watertight. Vigamox 0.07 cc was placed intracamerally at the end of the procedure. The eye was irrigated with balanced salt solution. The eye was patched with a soft cotton patch an d Fuchs metal shield. The patient was returned to day surgery in good condition. Comments: The incision was initiated in the sclera after cutting the conjunctiva with Shyla sciss ors. Discharge Instructions: Ms. Rivas was discharged to home in good condition and is to follow up with Dr. Olivas in the morning. JESSEE/ARIES Voice ID: [id number] Report ID: [id number]
== END 2018-07-22 09:40 | disposition home or self-care (01) ==
LOC: OR 06:52
PROVIDERS: ATTEND Ophthalmology Retina Specialist
PROC: 08RK3JZ Replacement of Left Lens with Synthetic Substitute, Percutaneous Approach (ICD-10-PCS; principal; 2018-07-22 08:30)
DX: H25.12 Age-related nuclear cataract, left eye (principal); H25.012 Cortical age-related cataract, left eye; I10 Essential (primary) hypertension; Z88.0 Allergy status to penicillin; Z88.8 Allergy status to other drugs, medicaments and biological substances; Z91.030 Bee allergy status; Z87.891 Personal history of nicotine dependence; Z83.518 Family history of other specified eye disorder; Z80.9 Family history of malignant neoplasm, unspecified; Z82.3 Family history of stroke; Z82.49 Family history of ischemic heart disease and other diseases of the circulatory system
CPT/HCPCS: J0171; J0690; J2704

== ENCOUNTER 2018-09-30 08:45 | Day surgery (SDC) | payer BC, OTHER ==
--- OUTSIDE RECORDS SUMMARY | 2018-09-30 08:49 | XMS REPORT | Continuity of Care Document ---
:1955 Author Organization Interface Problems Problem Status Onset Classification Date Comments Source Date Reported S06.9X9A - UNSP Active 03/19/20 [facility] INTRACRANIAL 17 [place] INJURY W LO LEFT OCCIPITAL Active 03/09/20 [facility] SKULL FX S/P 17 Medical FALL IN BATH Center HTN (<span Resolved Problem 03/23/2017 [facility] ID="[id number] [facility] ">Confirmed</spa [place] n>) [facility] Hypertension Resolved Problem 03/23/2017 [facility] TRAUM SUBRAC HEM Active [facility] LOC OF UNSP Medical DURATION, Center Medications Medication Details Route Status Patient Ordering Order Source Instructions Provider Date Levetiracetam 500 500 mg=1 tab, Active 03/10[facility] MG Oral Tablet PO, [id number]-[id number], 2017 Medical # 12 tab, 0 Center Refill(s) sodium chloride 1,000 mL, Inactive 03/10[facility] 0.9% 1000 ml INJ Rate: 50 2017 [facility] 1,000 mL ml/hr, Infuse [place] over: 20 hr, Route: IV, Dosing Weight 59.091 kg, Total Volume: 1,000, Start date: 03/09/17 20:30:00 CDT, Duration: 1 doses or times, Stop date: 03/10/17 16:29:00 CDT Reglan 10 mg, 2 mL, No Longer [facility] Route: IVP, Active 2016 Medical Drug form: Center INJ, Q6H, Dosing Weight 59.091, kg, PRN Nausea & Vomiting, Start date: 03/09/17 20:29:00 CDT, Duration: 30 day, Stop date: 04/08/17 20:28:00 CDTNotes: (Same as: Reglan) Levetiracetam 500 mg, 1 No Longer [facility] tab, Route: Active 2016 Medical PO, Drug Center form: TAB, [id number], Dosing Weight 59.091, kg, Start date: 03/09/17 18:00:00 CDT, Duration: 30 day, Stop date: 04/08/17 6:00:00 CDTNotes: (Same as:Anatoly) Chlordiazepoxide 25 mg, 1 cap, No Longer [facility] Hydrochloride 25 Route: PO, Active 2016 Medical MG Oral Capsule Drug form: [place] CAP, Q6H, Dosing Weight 59.091, kg, PRN Withdrawal, Alcohol Withdrawal, Start date: 03/09/17 16:47:00 CDT, Duration: 30 day, Stop date: 04/08/17 16:46:00 CDT Docusate Sodium 100 mg=1 cap, Active [facility] 100 MG Oral PO, Daily, 2017 Medical Capsule [Colace] PRN as needed Center for constipation, 0 Refill(s) Zyrtec =1 tab, PO, Active [place] Daily, 0 2016 Medical Refill(s) [place] propranolol 20 mg 20 mg=1 tab, Active [facility] oral tablet PO, Daily 2016 [facility] Dextrose 50% 25 gm, Route: Inactive [facility] Syringe IVP, Dosing 2017 Medical Weight [place] 59.091, kg, ONCE, STAT, Start date: 03/09/17 11:18:00 CDT, Stop date: 03/09/17 11:18:00 CDT Saline Flush 0.9% 10 ml, Route: No Longer [facility] IVP, Drug Active 2016 Medical Form: INJ, [place] Dosing Weight 59.091, kg, Q12H, Start date: 03/09/17 9:00:00 CDT, Duration: 30 day, Stop date: 04/07/17 21:00:00 CDTNotes: Same as: BD Posiflush Sterile Famotidine 20 mg, 2 mL, No Longer [facility] Route: IVP, Active 2016 Medical Drug form: [place] INJ, Q12H, Dosing Weight 59.091, kg, Start [...] (Same as: Colace) (Do Not Crush) sennosides, CUSTODIAL 8.6 mg, 1 No Longer [place] tab, Route: Active 2016 Medical PO, Drug Center Form: TAB, Dosing Weight 59.091, kg, Q12H, Start date: 03/09/17 9:00:00 CDT, Duration: 30 day, Stop date: 04/07/17 21:00:00 CDTNotes: (Same as: Senokot) Chlordiazepoxide 25 mg, 1 cap, Inactive [place] Hydrochloride 25 Route: PO, 2017 Medical MG Oral Capsule Drug form: [place] CAP, ONCE, Dosing Weight 59.091, kg, Alcohol [...] 1 doses or times, Dose=2.2ml/kg , Max arei=868mu -- "To be infused by Radiology Staff [...] Flush 0.9% 10 ml, Route: No Longer [facility] IVP, Drug Active 2016 Medical Form: INJ, Center Dosing Weight 59.091, kg, PRN, PRN Line Flush, Start date: 03/09/17 5:29:00 CDT, Duration: 30 day, Stop date: 04/08/17 5:28:00 CDTNotes: Same as: BD Posiflush Sterile Bisacodyl 10 mg, 1 No Longer [facility] supp, Route: Active 2017 Medical [place], Drug Center form: SUPP, Daily, Dosing Weight 59.091, kg, PRN Constipation, Start date: 03/09/17 5:29:00 CDT, Duration: 30 day, Stop date: 04/08/17 5:28:00 CDTNotes: (Same As: Dulcolax, Bisco-Lax) Labetalol 10 mg, 2 mL, No Longer [facility] Route: IVP, Active 2016 Medical Drug form: Center INJ, Q15Min, Dosing Weight 59.091, kg, PRN Hypertension, Start date: 03/09/17 5:29:00 CDT, Duration: 3 doses or times, Stop date: 03/25/17 0:00:00 CDT Ondansetron 4 mg, 2 mL, No Longer [facility] Route: IVP, Active 2016 Medical Drug form: Center INJ, Q8H, Dosing Weight 59.091, kg, PRN Nausea & Vomiting, Start date: 03/09/17 5:29:00 CDT, Duration: 30 day, Stop date: 04/08/17 5:28:00 CDTNotes: (Same as: Zofran) MEDICATION WASTE Product Size: 4 mg Product Wasted: 0 mg Morphine 2 mg, 1 mL, No Longer [place] Route: IVP, Active 2016 Medical Drug form: [place] INJ, Q4H, Dosing Weight 59.091, kg, PRN Pain Score 7-10, Start date: 03/09/17 5:29:00 CDT, Duration: 30 day, Stop date: 04/08/17 5:28:00 CDTNotes: (Same as:MORPhine Sulfate) Propranolol 10 mg, 1 tab, No Longer [place] Route: PO, Active 2016 Medical Drug form: [place] TAB, Daily, Dosing Weight 59.091, kg, Priority: [...] 15:17:00 CDT Sodium Chloride 1,000 mL, Inactive [place] 0.9% IV 1000 mL Rate: 75 2016 [...] Adhesive Tape Assertion Drug Active [facility] allergy [place] penicillins Assertion Drug Active [facility] allergy [place] Immunizations Immunization Date Given Site Status Last Updated Comments Source Results Order Name Results Value Reference Date Interpretation Comments Source Range Brain wo Brain wo CT Radiation Dose DLP 872 mGy-cm 03/20 - [facility] contrast CT contrast CT /2016 - [place] Patient Name: HAYLEE HICKS : 1955; Age: 61 years Female Read by: Sammy Crouch MD Dictated Date/time: 03/20/17 16:33 MR: [id number] Electronically Signed by: Sammy Crouch MD 03/20/17 [...] with decreased subarachnoid and subdural hemorrhage. SL: [id number] Elbow 3 Elbow 3 EXAM: XR LEFT ELBOW 3 VIEWS 03/10 - [facility] views DX views - [facility] Center DATE: 03/10/2017 9:43 AM CDT Read [...] DRUG SCREEN UDS Note See Note 03/10 [facility] *NA* [place] (03/09/17 8:52 PM) DRUG SCREEN U [facility]ab [facility] [place] [facility]03[facility]09/17 8:52 PM) DRUG SCREEN U Benzodia Negative Negative 03/10 [facility]* [place] (03/09/17 8:52 PM) DRUG SCREEN U Cocaine Negative Negative 03/10 [facility]* [place] (03/09/17 8:52 PM) DRUG SCREEN U Amph Scr Negative Negative 03/10 [facility]* [place] (03/09/17 8:52 PM) DRUG SCREEN U Keyonna Scr Negative Negative 03/10 Medical *NA* Center (03/09/17 8:52 PM) DRUG SCREEN U Opiate Scr Negative Negative 03/10 [facility] *NA* Center (03/09/17 8:52 PM) DRUG SCREEN U Phencyc Negative Negative 03/10 [place] [facility] *NA* Center (03/09/17 8:52 PM) BACTERIAL - MRSA by PCR Negative 03/10 [place] [facility] Medical (03/09/17 7:10 PM) Center CARDIAC Troponin-I null 0.00 - 03/09 [place] ENZYMES 0.40 [facility] CARDIAC Total CK 567 unit/L 12 - 191 03/09 [facility] ENZYMES [facility] CARDIAC Troponin-T null 0.000 - 03/09 [place] ENZYMES 0.100 [facility] CARDIAC CK-MB INDEX 0.4 0.0 - 2.5 03/09 [facility] ENZYMES [facility] CARDIAC CK MB 2.1 ng/mL 0.5 - 3.6 03/09 [place] ENZYMES [facility] BLOOD BANK ABO/Rh A POS 03/09 [place] RESULTS [facility] BLOOD BANK Antibody Negative 03/09 [facility] RESULTS Scr [facility] (03/09/17 5:17 AM) Center CARDIAC Troponin-I null 0.00 - 03/09 [facility] ENZYMES 0.40 [facility] CARDIAC Total CK 565 unit/L - 191 03/09 [facility] ENZYMES [facility] CARDIAC Troponin-T null 0.000 - 03/09 [place] ENZYMES 0.100 [facility] CARDIAC CK MB 2.8 ng/mL 0.5 - 3.6 03/09 [place] ENZYMES [facility] CARDIAC CK-MB INDEX 0.5 0.0 - 2.5 03/09 [place] ENZYMES [facility] CHEM PANEL Lactic Acid 2.2 mMol/L 0.5 - 2.2 03/09 [place] Lvl [facility] ELECTROLYTE AGAP 15.8 meq/L 10.0 - 03/09 [facility] S 20.0 [facility] [place] ELECTROLYTE Calcium Lvl 8.4 mg/dL 8.5 - 10.5 03/09 [place] S [facility] ELECTROLYTE Potassium 3.8 meq/L 3.5 - 5.1 03/09 [facility] Lvl [facility] ELECTROLYTE Chloride Lvl 100 meq/L 95 - 109 03/09 [facility] [address] [place] [address] ELECTROLYTE CO2 25 meq/L 24 - 32 03/09 [facility] ELECTROLYTE Sodium Lvl 137 meq/L 135 - 145 03/[address] ELECTROLYTE Glucose Lvl 82 mg/dL 70 - 99 03/[address] ELECTROLYTE BUN 7 mg/dL 7 - 22 03/[address] ELECTROLYTE Creatinine 0.50 mg/dL 0.50 - 03/09 [facility] Lvl 1.40 [facility] ELECTROLYTE eGFR 104 03/09 Result Comment: The eGFR is calculated using the CKD-EPI formula. In most young, healthy individuals the eGFR will be > 90 mL/min/1.73m2. The eGFR declines with age. An eGFR of 60-89 may be normal in [facility] mL/min/1.7 some populations, particularly the elderly, for whom the CKD-EPI formula has not been extensively validated. Use of the eGFR is not recommended in the following populations: [address] Individuals with unstable creatinine concentrations, including [...] BMI. HEMATOLOGY Macrocyte 1+ None Seen 03/09 [facility] *ABN* Center (03/09/17 5:17 AM) HEMATOLOGY Segs-Bands # 5.1 K/CMM 1.5 - 8.1 03/09 [facility] [address] [place] [address] HEMATOLOGY Lymphocytes 1.3 K/CMM 1.0 - 5.5 03/09 [facility]2016 [facility] HEMATOLOGY Monocytes # 0.5 K/CMM 0.0 - 0.8 03/[address] HEMATOLOGY Eosinophils 0.2 % 0.0 - 4.0 03/[address] HEMATOLOGY Basophils 0.3 % 0.0 - 1.0 03/[address] HEMATOLOGY Monocytes 7.5 % 2.0 - 12.0 03/[address] HEMATOLOGY Lymphocytes 18.3 % 20.0 - 07/14 [facility] 40.0 [facility] HEMATOLOGY Segs 73.7 % 45.0 - 03/09 [facility] 75.0 [facility] HEMATOLOGY RBC 3.54 M/CMM 4.20 - 03/09 [facility] 5.40 /2016 [facility] HEMATOLOGY Hgb 12.0 g/dL 12.0 - 03/09 [facility] 16.0 [facility] HEMATOLOGY Hct 35.6 % 36.0 - 03/09 [facility] 48.0 [facility] HEMATOLOGY MCV 100.5 fL 80.0 - 03/09 [facility] 98.0 [facility] HEMATOLOGY MCH 33.7 pg 27.0 - 03/09 [facility] 31.0 [facility] HEMATOLOGY MCHC 33.6 g/dL 32.0 - 03/09 [facility] 36.0 [facility] HEMATOLOGY RDW 13.7 % 11.5 - 03/09 [facility] 14. [facility] HEMATOLOGY WBC 6.9 K/CMM 3.7 - 10.4 03/09 [facility] HEMATOLOGY Platelet 96 K/CMM 133 - 450 03/09 [facility] HEMATOLOGY MPV 8.4 fL 7.4 - 10.4 03/09 [facility] HEMATOLOGY Estimated % 0.7 % 0.0 - 7.5 03/09 [facility] Lysis [facility] HEMATOLOGY G-value 7.1 K d/sc 5.0 - 11.6 03/09 [facility] [address] [place] [address] HEMATOLOGY Max 59 mm 52 - 71 03/09 [facility] HEMATOLOGY Angle Rapid 75 degrees 64 - 80 03/09 [facility] HEMATOLOGY K-time Rapid 1.5 min 0.6 - 2.3 03/09 [facility] HEMATOLOGY R-time Rapid 0.5 min 0.4 - 0.7 03/09 [facility] HEMATOLOGY [place] 0.4 min 03/09 [facility] HEMATOLOGY ACT (TEG) 97 s 86 - 118 03/09 [facility] [address] [place] [address] TOXICOLOGY Etoh (%) 0.261 % 03/09 [facility] TOXICOLOGY Ethanol Lvl 261 mg/dL 03/09 Result Comment: Medical Critical Center Result(s) called to Ethan Duque at 03/09/2017 05:37 by DRB. Read back OK. Brain wo Brain wo EXAM: CT BRAIN WITHOUT CONTRAST 03/09 - [facility] contrast CT contrast CT /2016 - Medical This report was dictated by a Carrot Tier/Fellow. I have personally reviewed the images as [...] Brain/Neck Brain/Neck EXAM: CTA BRAIN 03/09 - [facility] CTA CTA /2016 - Medical EXAM: CTA NECK This report was dictated by a Carrot Tier/ Fellow. I have personally reviewed the images [...] EXAM: CT CERVICAL SPINE WITHOUT CONTRAST 03/09 [facility] Consult e Consult CT /2016 - Medical CT This report was dictated by a Carrot Tier/Fellow. I have personally reviewed the images as [...] EXAM: CT BRAIN WITHOUT CONTRAST 03/09 - [facility] de Consult e Consult CT - Medical CT This report was dictated by a Carrot Tier/Fellow. I have personally reviewed the images as [...] of care. The study was performed at [facility] on March 09, 2017 at 12:31 [...] the subsequent follow-up CT study performed at [facility] are not present on this exam indicating [...] Date Comments Source Respitory Rate 14 03/10/2017 [facility] Systolic (mm Hg) 142 03/10/2017 [facility] Diastolic (mm Hg) 85 03/10/2017 [facility] Temperature Oral (F) 98.7 F 03/10/2017 [facility] Systolic (mm Hg) 147 03/10/2017 [facility] Diastolic (mm Hg) 88 03/10/2017 [facility] Respitory Rate 21 03/10/2017 [facility] Systolic (mm Hg) 135 03/10/2017 [facility] Diastolic (mm Hg) 86 03/10/2017 [facility] Respitory Rate 18 03/10/2017 [facility] Temperature Oral (F) 97.6 F 03/10/2017 [facility] Temperature Oral (F) 98.1 F 03/10/2017 [facility] Weight 59.091 03/09/2017 [facility] BMI Calculated 21.03 03/09/2017 [facility] Height 167.64 cm 03/09/2017 [facility] Weight 59.091 03/09/2017 [facility] BMI Calculated 21.03 03/09/2017 [facility] Height 167.64 cm 03/09/2017 [facility] Heart Rate 98 03/09/2017 [facility] Encounters Location Location Encounter Encounter Reason Attending ADM DC Status Source Details Type Number For Provider Date Date Visit [facility] Inpatient [id number] [place] 03/09 03/10 [facility] /2016 [facility] Outpt Diag [id number] Amarjit 03/20 03/21 [facility]2016 [facility] [place] [facility] [id number] TRAU[place] 03/22 Active [facility] /2016 [place] Procedures Procedure Code Date Perfomer Comments Source Appendix operation [id number] [facility] [place] Breast [id number] [facility] [place] LASIK [id number] [facility] [place] Appendix operation [id number] [facility] Breast [id number] [facility] LASIK [id number] [facility]
[2018-09-30] MEDS ORDERED: CYCLOPENTOLATE 1% OPTH 2 ML ONE (09:25)
[2018-09-30] MEDS ORDERED: PHENYLEPHRINE 10% OPTH 5ML ONE (09:25)
[2018-09-30] MEDS ORDERED: TETRACAINE HCL 0.5% 2ML OPTH ONE (09:25)
[2018-09-30] MEDS ORDERED: NS 0.9% VIAL 10 ML ONE (09:27)
[2018-09-30] MEDS ORDERED: BALANCED SALT IRRIG PLAIN 500 ML BTL IRR ONE (09:27)
[2018-09-30] MEDS ORDERED: PHENYLEPHRINE 10% OPTH 5ML OPTH ONE ×2 (09:32→09:42)
[2018-09-30] MEDS ORDERED: CYCLOPENTOLATE 1% OPTH 2 ML OPTH ONE ×2 (09:32→09:42)
[2018-09-30] MEDS: NA CHLORIDE 0.9% 500 ML ONE ×2 (10:17→10:23)
[2018-09-30] MEDS: BUPIVACAINE 0.25% PF 10 ML VIAL ONE ×2 (10:21→10:54)
[2018-09-30] MEDS: LIDOCAINE 2% MPF 5 ML VIAL ONE ×2 (10:22→10:54)
[2018-09-30] MEDS ORDERED: LIDOCAINE 2% MPF 5 ML VIAL ONE (10:40)
[2018-09-30] MEDS ORDERED: PROPOFOL 200 MG/20 ML VIAL IV ONE (10:40)
[2018-09-30] MEDS: BSS PLUS 500 ML BOTTLE IRR ONE ×2 (10:55→11:07)
[2018-09-30] MEDS: EPINEPHRINE/PF 1 MG/ML AMP ONE ×2 (10:56→11:07)
[2018-09-30] MEDS: DUOVISC 1 KIT OPTH ONE ×2 (10:57→11:10)
[2018-09-30] MEDS: MOXIFLOXACIN HCL 10 DROPS/ML **OR USE OPTH ONE ×3 (10:57→11:24)
--- NOTE | 2018-09-30 11:31 | P.BOP ---
Preoperative diagnosis: Nuclear sclerotic and cortical cataract OD Postoperative diagnosis: Same Primary procedure: Phacoemulsification with IOL OS Estimated blood loss: None Anesthesia: Local (Subtenon's infusion with anesthesia for cataract surgery) Complications: None Implants: [id number] +20.5 Transferred to: Other (Day surgery) Condition: Good
--- NOTE | 2018-09-30 22:52 | OP ---
Date of Procedure: 09/30/2018 Surgeon: Ness Olivas MD Anesthesiologist: 1. Royal Sandhu CRNA. 2. Stanford Glass M.D. Preoperative Diagnoses: 1. Nuclear sclerotic cataract and cortical cataract, OD (right eye). 2. Fuchs dystrophy, OD (right eye). Operation Performed: Phacoemulsification with intraocular lens implant, right eye. Anesthesia: Per cataract surgery. Complications: None. Description Of Procedure: In day surgery, the patient was prepped with Betadine and draped. A conjunctival incision was made in the inferior nasal quadrant with Shyla scissors. A sub-Tenon block consisting of a 1:1 mixture of 2% Xylocaine and 0.25% bupivacaine was placed through the conjunctival incision with a blunt cannula. A Honan balloon was placed over the eye and the patient was transferred to the operating room. In the operating room the patient was prepped and draped in the usual sterile fashion for ophthalmic surgery. A lid speculum was placed in the right eye. Two paracentesis sites were made superiorly and inferiorly in the limbal cornea. Viscoat was placed in the anterior chamber and a crescent blade was used to make a corneal groove and tunnel, and a keratome was used to enter the anterior chamber. Provisc was placed in the anterior chamber and a 360 degree capsulotomy was performed with a cystitome. The lens was hydrodissected with BSS and rotated freely. The lens was removed with a stop and chop technique. A 4.52 Phaco CDE was used to remove the lens. Residual cortex was removed with the irrigation and aspiration. Provisc was placed in the capsular bag. A SA60WF +20.5 lens was placed in the capsular bag without complications. Irrigation and aspiration was used to remove residual viscoelastic. The paracentesis sites were hydrated with BSS. The wound and paracentesis sites were inspected and found to be watertight. Vigamox 0.07 cc was placed intracamerally at the end of the procedure. The eye was irrigated with balanced salt solution. The eye was patched with a soft cotton patch and Fuchs metal shield. The patient was returned to day surgery in good condition. Comments: Extra Viscoat was used. Discharge Instructions: Ms. Rivas is discharged to home in good condition and is to follow up with Dr. Olivas in the morning. JESSEE/ARIES Voice ID: [id number] Report ID: [id number] KALEE
== END 2018-09-30 12:15 | disposition home or self-care (01) ==
LOC: OR 08:45
PROVIDERS: ATTEND Ophthalmology Retina Specialist
PROC: 08RJ3JZ Replacement of Right Lens with Synthetic Substitute, Percutaneous Approach (ICD-10-PCS; principal; 2018-09-30 10:00)
DX: H25.11 Age-related nuclear cataract, right eye (principal); H18.51 Endothelial corneal dystrophy
CPT/HCPCS: J0171; J2704

== ENCOUNTER 2019-03-15 09:22 | Emergency (ER) | payer BC, OTHER ==
--- OUTSIDE RECORDS SUMMARY | 2019-03-15 09:26 | XMS REPORT | Continuity of Care Document ---
:1955 Author Organization [facility] Team Providers Name Role [facility] Signicast Unavailable Unavailable Problems Problem Status Onset Classification Date Comments Source Date Reported S06.9X9A - UNSP Active 03/19/20 [facility] 17 [place] INJURY W LO LEFT OCCIPITAL Active 03/09/20 [facility] SKULL FX S/P 17 Medical FALL IN BATH Center HTN (Confirmed) Resolved Problem 03/23/2017 [facility], [facility] [place] Hypertension Resolved Problem 03/23/2017 [facility], [facility] [place] TRAUM SUBRAC HEM Active [facility] LOC OF UNSP Medical DURATION, Center Medications Medication Details Route Status Patient Ordering Order Source Instructions Provider Date Levetiracetam 500 500 mg=1 tab, Active 03/10[facility] MG Oral Tablet PO, D10C-28, 2017 Medical # 12 tab, 0 Center Refill(s) sodium chloride 1,000 mL, Inactive 03/10[facility] 0.9% 1000 ml INJ Rate: 50 2017 [facility] 1,000 mL ml/hr, Infuse Center over: 20 hr, Route: IV, Dosing Weight 59.091 kg, Total Volume: 1,000, Start date: 03/09/17 20:30:00 CDT, Duration: 1 doses or times, Stop date: 03/10/17 16:29:00 CDT Reglan 10 mg, 2 mL, No Longer 03/10/ [facility] Route: IVP, Active 2016 Medical Drug form: Center INJ, Q6H, Dosing Weight 59.091, kg, PRN Nausea & Vomiting, Start date: 03/09/17 20:29:00 CDT, Duration: 30 day, Stop date: 04/08/17 20:28:00 CDTNotes: (Same as: Reglan) Levetiracetam 500 mg, 1 No Longer [facility] tab, Route: Active 2016 Medical PO, Drug Center form: TAB, [id number], Dosing Weight 59.091, kg, Start date: 03/09/17 18:00:00 CDT, Duration: 30 day, Stop date: 04/08/17 6:00:00 CDTNotes: (Same as:Anatoly) Chlordiazepoxide 25 mg, 1 cap, No Longer [place] Hydrochloride 25 Route: PO, Active 2016 Medical MG Oral Capsule Drug form: [facility] CAP, Q6H, Dosing Weight 59.091, kg, PRN Withdrawal, Alcohol Withdrawal, Start date: 03/09/17 16:47:00 CDT, Duration: 30 day, Stop date: 04/08/17 16:46:00 CDT Docusate Sodium 100 mg=1 cap, Active [place] 100 MG Oral PO, Daily, 2017 Medical Capsule [Colace] PRN as needed Center for constipation, 0 Refill(s) Zyrtec =1 tab, PO, Active [place] Daily, 0 2016 Medical Refill(s) [facility] propranolol 20 mg 20 mg=1 tab, Active [facility] oral tablet PO, Daily 2016 [facility] Dextrose 50% 25 gm, Route: Inactive [facility] Syringe IVP, Dosing 2017 Medical Weight [facility] 59.091, kg, ONCE, STAT, Start date: 03/09/17 11:18:00 CDT, Stop date: 03/09/17 11:18:00 CDT Saline Flush 0.9% 10 ml, Route: No Longer [facility] IVP, Drug Active 2016 Medical Form: INJ, [facility] Dosing Weight 59.091, kg, Q12H, Start date: 03/09/17 9:00:00 CDT, Duration: 30 day, Stop date: 04/07/17 21:00:00 CDTNotes: Same as: BD Posiflush Sterile Famotidine 20 mg, 2 mL, No Longer [facility] Route: IVP, Active 2016 Medical Drug form: [facility] INJ, Q12H, Dosing Weight 59.091, kg, Start date: 03/09/17 9:00:00 CDT, Duration: 30 day, Stop date: 04/07/17 21:00:00 CDTNotes: (Same as: Pepcid) Can be dilute in 5-10cc NS IVP: Slow IV push over at least 2 minutes. Docusate Sodium 100 mg, 1 No Longer [place] 100 MG Oral cap, Route: Active 2016 Medical Capsule PO, Drug Center form: CAP, Q12H, Dosing Weight 59.091, kg, Start date: 03/09/17 9:00:00 CDT, Duration: 30 day, Stop date: 04/07/17 21:00:00 CDTNotes: (Same as: Colace) (Do Not Crush) sennosides, [facility] 8.6 mg, 1 No Longer [place] tab, Route: Active 2016 Medical PO, Drug Center Form: TAB, Dosing Weight 59.091, kg, Q12H, Start date: 03/09/17 9:00:00 CDT, Duration: 30 day, Stop date: 04/07/17 21:00:00 CDTNotes: (Same as: Senokot) Chlordiazepoxide 25 mg, 1 cap, Inactive [place] Hydrochloride 25 Route: PO, 2017 Medical MG Oral Capsule Drug form: [facility] CAP, ONCE, Dosing Weight 59.091, kg, Alcohol Withdrawal, Start date: 03/09/17 7:12:00 CDT, Stop date: 03/09/17 7:12:00 CDT Thiamine 100 mg, 1 mL, Inactive [place] Route: IV, 2017 Medical ONCE, Dosing Center Weight 59.091, kg, Priority: STAT, Start date: 03/09/17 7:11:00 CDT, Stop date: 03/09/17 7:11:00 CDTNotes: (Same As: Vitamin B1) Iohexol 100 mL, Inactive [facility] Route: IVP, 2017 Medical Drug Form: [facility] SOLN, Dosing Weight 59.091, kg, ONCALL, STAT, Start date: 03/09/17 6:29:00 CDT, Duration: 1 doses or times, Dose=2.2ml/kg , Max rdpr=[id number] -- "To be infused by Radiology Staff ONLY" Insulin regular 6 unit, 0.06 No Longer [place] mL, Route: Active 2016 Medical SUB-Q, Drug [...] Flush 0.9% 10 ml, Route: No Longer [facility] IVP, Drug Active 2016 Medical Form: INJ, Center Dosing Weight 59.091, kg, PRN, PRN Line Flush, Start date: 03/09/17 5:29:00 CDT, Duration: 30 day, Stop date: 04/08/17 5:28:00 CDTNotes: Same as: BD Posiflush Sterile Bisacodyl 10 mg, 1 No Longer [facility] supp, Route: Active 2017 Medical MA, Drug Center form: SUPP, Daily, Dosing Weight 59.091, kg, PRN Constipation, Start date: 03/09/17 5:29:00 CDT, Duration: 30 day, Stop date: 04/08/17 5:28:00 CDTNotes: (Same As: Dulcolax, Bisco-Lax) Labetalol 10 mg, 2 mL, No Longer [facility] Route: IVP, Active 2016 Medical Drug form: Center INJ, Q15Min, Dosing Weight 59.091, kg, PRN Hypertension, Start date: 03/09/17 5:29:00 CDT, Duration: 3 doses or times, Stop date: 03/25/17 0:00:00 CDT Ondansetron 4 mg, 2 mL, No Longer [facility] Route: IVP, Active 2016 Medical Drug form: Center INJ, Q8H, Dosing Weight 59.091, kg, PRN Nausea & Vomiting, Start date: 03/09/17 5:29:00 CDT, Duration: 30 day, Stop date: 04/08/17 5:28:00 CDTNotes: (Same as: Zofran) MEDICATION WASTE Product Size: 4 mg Product Wasted: 0 mg Morphine 2 mg, 1 mL, No Longer [place] Route: IVP, Active 2016 Medical Drug form: [facility] INJ, Q4H, Dosing Weight 59.091, kg, PRN Pain Score 7-10, Start date: 03/09/17 5:29:00 CDT, Duration: 30 day, Stop date: 04/08/17 5:28:00 CDTNotes: (Same as:MORPhine Sulfate) Propranolol 10 mg, 1 tab, No Longer [place] Route: PO, Active 2016 Medical Drug form: [facility] TAB, Daily, Dosing Weight 59.091, kg, Priority: STAT, Start date: 03/09/17 5:27:00 CDT, Duration: 30 day, Stop date: 04/07/17 9:00:00 CDTNotes: Give with food. (Same as: Inderal) Sodium Chloride 1,000 mL, Inactive [place] 0.154 MEQ/ML Rate: 100 2016 Medical Injectable ml/hr, Infuse Center Solution over: 10.1 hr, Route: IV, Dosing Weight 59.091 kg, Total Volume: 1,011.2, Start date: 03/09/17 5:12:00 CDT, Duration: 1 doses or times, Stop date: 03/09/17 15:17:00 CDT Sodium Chloride 1,000 mL, Inactive [place] 0.9% IV 1000 mL Rate: 75 2016 Medical ml/hr, Infuse Center over: 13.3 hr, Route: IV, Dosing Weight 59.091 kg, Total Volume: 1,000, Start date: 03/09/17 4:55:00 CDT, Duration: 30 day, Stop date: 04/08/17 4:54:00 CDT Keppra 1,000 mg, Inactive [place] Route: IV, 2017 Medical ONCE, Dosing Center Weight 59.091, kg, Priority: STAT, Start date: 03/09/17 4:55:00 CDT, Stop date: 03/09/17 4:55:00 CDTNotes: Same as Keppra Mix with 100 mL NS, LR or D5W MEDICATION WASTE Product Size: 500 mg Product Wasted: ___ mg Saline Flush 0.9% 10 mL, Route: No Longer [facility] IVP, Drug Active 2016 Medical Form: INJ, Center Dosing Weight 59.091, kg, PRN, PRN Line Flush, Start date: 03/09/17 4:49:00 CDT, Duration: 30 day, Stop date: 04/08/17 4:48:00 CDTNotes: Same as: BD Posiflush Sterile Allergies, Adverse Reactions, Alerts Substance Category Reaction Severity Reaction Status Date Comments Source type Reported Adhesive Tape Assertion Drug Active [facility] allergy [place] penicillins Assertion Drug Active [facility] allergy [place] Immunizations No Data Provided for This Section Results Order Name Results Value Reference Date Interpretation Comments Source Range DRUG SCREEN UDS Note See Note 03/10 [place] *NA* Medical (03/09/17 8:52 PM) Center DRUG SCREEN U Cannab Scr Negative Negative 03/10 [place] *NA* Medical (03/09/17 8:52 PM) Center DRUG SCREEN U Benzodia Negative Negative 03/10 [place] Scr *NA* Medical (03/09/17 8:52 PM) Center DRUG SCREEN U Cocaine Negative Negative 03/10 [facility] Scr *NA* Medical (03/09/17 8:52 PM) Center DRUG SCREEN U Amph Scr Negative Negative 03/10 [place] *NA* Medical (03/09/17 8:52 PM) Center DRUG SCREEN U Keyonna Scr Negative Negative 03/10 [facility] *NA* Medical (03/09/17 8:52 PM) Center DRUG SCREEN U Opiate Scr Negative Negative 03/10 [place] *NA* Medical (03/09/17 8:52 PM) Center DRUG SCREEN U Phencyc Negative Negative 03/10 [facility] Scr *NA* Medical (03/09/17 8:52 PM) Center BACTERIAL - MRSA by PCR Negative 03/10 [facility] SEROLOGY (03/09/17 7:10 PM) /2016 Medical Center CARDIAC Troponin-I <0.02 0.00 - 03/09 [facility] ENZYMES 0.40 Medical [facility] CARDIAC Total CK 567 12 - 191 03/09 [facility] ENZYMES /2016 Medical Center CARDIAC Troponin-T <0.010 0.000 - 03/09 [facility] ENZYMES 0.100 [facility] CARDIAC CK-MB INDEX 0.4 0.0 - 2.5 03/09 [facility] ENZYMES [facility] CARDIAC CK MB 2.1 0.5 - 3.6 03/09 [facility] ENZYMES /2016 [facility] BLOOD BANK ABO/Rh A POS 03/09 [facility] RESULTS /2016 [facility] BLOOD BANK Antibody Negative 03/09 [facility] RESULTS Scrn (03/09/17 5:17 AM) [facility] CARDIAC Troponin-I <0.02 0.00 - 03/09 [facility] ENZYMES 0.40 [facility] CARDIAC Total CK 565 12 - 191 03/09 [facility] ENZYMES [facility] CARDIAC Troponin-T <0.010 0.000 - 03/09 [facility] ENZYMES 0.100 [facility] CARDIAC CK MB 2.8 0.5 - 3.6 03/09 [facility] ENZYMES /2016 [facility] CARDIAC CK-MB INDEX 0.5 0.0 - 2.5 03/09 [facility] CHEM PANEL Lactic Acid 2.2 0.5 - 2.2 03/09 [facility] Lvl /2016 [facility] ELECTROLYTES AGAP 15.8 10.0 - 03/09 [place] 20.0 [facility] ELECTROLYTES Calcium Lvl 8.4 8.5 - 10.5 03/09 2016 [facility] ELECTROLYTES Potassium 3.8 3.5 - 5.1 03/[address] [facility] ELECTROLYTES Chloride Lvl 100 95 - 109 03/09 2016 [facility] ELECTROLYTES CO2 25 24 - 32 03/09 2016 [facility] ELECTROLYTES Sodium Lvl 137 135 - 145 03/09 [facility] ELECTROLYTES Glucose Lvl 82 70 - 99 03/09 [facility] ELECTROLYTES BUN 7 7 - 22 03/09 [facility] ELECTROLYTES Creatinine 0.50 0.50 - 03/09 [facility] 1.40 [facility] ELECTROLYTES eGFR 104 03/09 Result Comment: The [facility] eGFR is Center calculated using the CKD-EPI formula. In most young, healthy individuals the eGFR will be >90 mL/min/1.73m2 . The eGFR declines with age. An eGFR of 60-89 may be normal in some populations, particularly the elderly, for whom the CKD-EPI formula has not been extensively validated. Use of the eGFR is not recommended in the following populations:< br/>
Elena viduals with unstable creatinine concentration s, including patients and those with serious co-morbid conditions.<b r/>
Patie nts with extremes in muscle mass or diet.

The data above are obtained from the National Kidney Disease Education Program (NKDEP) which additionally recommends that when the eGFR is used in patients with extremes of body mass index for purposes of drug dosing, the eGFR should be multiplied by the estimated BMI. HEMATOLOGY Macrocyte 1+ None Seen 03/09 [facility] *ABN* /2016 [facility] (03/09/17 5:17 AM) [facility] HEMATOLOGY Segs-Bands # 5.1 1.5 - 8.1 03/09 [facility] HEMATOLOGY Lymphocytes 1.3 1.0 - 5.5 03/09 # [facility] HEMATOLOGY Monocytes # 0.5 0.0 - 0.8 03/09 [facility] HEMATOLOGY Eosinophils 0.2 0.0 - 4.0 03/09 [facility] HEMATOLOGY Basophils 0.3 0.0 - 1.0 03/09 [facility] HEMATOLOGY Monocytes 7.5 2.0 - 12.0 03/09 [facility] HEMATOLOGY Lymphocytes 18.3 20.0 - 03/09 [place] 40.0 [facility] HEMATOLOGY Segs 73.7 45.0 - 03/09 [place] 75.0 [facility] HEMATOLOGY RBC 3.54 4.20 - 03/09 [place] 5.40 [facility] HEMATOLOGY Hgb 12.0 12.0 - 03/09 [place] 16.0 [facility] HEMATOLOGY Hct 35.6 36.0 - 03/09 [place] 48.0 [facility] HEMATOLOGY MCV 100.5 80.0 - 03/09 [place] 98.0 [facility] HEMATOLOGY MCH 33.7 27.0 - 03/09 [place] 31.0 [facility] HEMATOLOGY MCHC 33.6 32.0 - 03/09 [place] 36.0 [facility] HEMATOLOGY RDW 13.7 11.5 - 03/09 [place] 14.5 [facility] HEMATOLOGY WBC 6.9 3.7 - 10.4 03/09 [facility] HEMATOLOGY Platelet 96 133 - 450 03/09 [facility] HEMATOLOGY MPV 8.4 7.4 - 10.4 03/09 [facility] HEMATOLOGY Estimated % 0.7 0.0 - 7.5 03/09 [facility] Lysis [facility] HEMATOLOGY G-value 7.1 5.0 - 11.6 03/09 [facility] HEMATOLOGY Max 59 52 - 71 03/09 [facility] HEMATOLOGY Angle Rapid 75 64 - 80 03/09 [facility] HEMATOLOGY K-time Rapid 1.5 0.6 - 2.3 03/09 [facility] HEMATOLOGY R-time Rapid 0.5 0.4 - 0.7 03/09 [facility] HEMATOLOGY [place] 0.4 03/09 [facility] HEMATOLOGY ACT (TEG) 97 86 - 118 03/09 [facility] TOXICOLOGY Etoh (%) 0.261 03/09 [facility] TOXICOLOGY Ethanol Lvl 261 03/09 Result Comment: [facility] Result(s) called to Ethan Duque at 03/09/2017 05:37 by ISMAEL. Read back OK. Pathology Reports No Data Provided for This Section Diagnostic Reports Report Value Date Source Brain wo contrast CT CT Radiation Dose DLP 872 mGy-cm 03/20/2017 LEONEL Lopez Patient Name: HAYLEE HICKS : 1955; Age: 61 years Female MR: [id number] Study: Brain wo contrast CT 03/20/2017 1:29 PM CDT Clinical Indication: S06.9X9A Unspecified intracranial injury with loss of consciousness of unspecified duration, initial encounter - S06.9X9A Unspecified intracranial injury with loss of consciousn ess of unspecified duration, initial encounter. COMPARISON: 03/09/2017. TECHNIQUE: CT images were obtained [...] effect, midline shift or edema. Decreased subacute bi frontal subdural hematomas measuring 2-3 mm. Resolved bilateral temporal subarachnoid hemorrhage. There is no noncontrast CT evidence of a subacute stroke. Chronic lacunar infarction in the right basal ganglia. The pineal, sellar, brainstem, cerebellum and skull [...] with decreased subarachnoid and subdural hemorrhage. SL: [id number] Elbow 3 views DX EXAM: XR LEFT ELBOW 3 VIEWS 03/10/2017 [facility] DATE: 03/10/2017 9:43 AM T Center INDICATION: - pain, swelling s/p fall COMPARISON: None available TECHNIQUE: AP, lateral and oblique radiographs of the elbow FINDINGS: No acute fracture or malalignment is identified. There is no excessive joint fluid. Mild subcutaneous edema/contusion is seen along the medial aspect of elbow. IMPRESSION: 1. No acute fracture or malalignment. 2. Mild subcutaneous edema/contusion along the medial aspect of elbow. Brain wo contrast CT EXAM: CT BRAIN WITHOUT CONTRAST 03/09/2017 [facility] DATE: 03/09/2017 6:10 AM T Center INDICATION: - SAH, Skull fx L occipital [...] 3. Stable left occipital bone fracture. Brain/Neck CTA EXAM: CTA BRAIN 03/09/2017 [facility] EXAM: CTA NECK Center DATE: 03/09/2017 6:10 AM CDT INDICATION: - C7 L TP fx, syncope, [...] the distal internal carotid artery {NASCET criteria}.) Spine-Outside Consult EXAM: CT CERVICAL SPINE WITHOUT CONTRAST 03/09/2017 [facility] CT DATE: 03/09/2017 4:49 AM CDT Center INDICATION: - outside films ADDITIONAL INFORMATION: None. [...] spine, most pronounced from C5 to T1. Brain-Outside Consult EXAM: CT BRAIN WITHOUT CONTRAST 03/09/2017 [facility] CT DATE: 03/09/2017 4:49 AM CDT Center INDICATION: - outside films COMPARISON: None TECHNIQUE: Formal interpretation of a CT examination of the brain performed at an outside institution is requested after patient transfer for a higher level of care. The study was performed at [facility] on March 09, 2017 at 12:31 [...] the subsequent follow-up CT study performed at [facility] are not present on this exam indicating [...] do not see evidence of the latter. Consultation Notes No Data Provided for This Section Discharge Summaries No Data Provided for This Section History and Physicals No Data Provided for This Section Vital Signs Vital Sign Value Date Comments Source Respitory Rate 14 03/10/2017 [facility] Systolic (mm Hg) 142 03/10/2017 [facility] Diastolic (mm Hg) 85 03/10/2017 [facility] Temperature Oral (F) 98.7 F 03/10/2017 [facility] Systolic (mm Hg) 147 03/10/2017 [facility] Diastolic (mm Hg) 88 03/10/2017 [facility] Respitory Rate 21 03/10/2017 [facility] Systolic (mm Hg) 135 03/10/2017 [facility] Diastolic (mm Hg) 86 03/10/2017 [facility] Respitory Rate 18 03/10/2017 [facility] Temperature Oral (F) 97.6 F 03/10/2017 [facility] Temperature Oral (F) 98.1 F 03/10/2017 [facility] Weight 59.091 03/09/2017 [facility] BMI Calculated 21.03 03/09/2017 [facility] Height 167.64 cm 03/09/2017 [facility] Weight 59.091 03/09/2017 [facility] BMI Calculated 21.03 03/09/2017 [facility] Height 167.64 cm 03/09/2017 [facility] Heart Rate 98 03/09/2017 [facility] Encounters Location Location Encounter Encounter Reason Attending ADM DC Status Source Details Type Number For Provider Date Date [facility] [id number] [place] 03/09 03/10 [facility] /2016 [facility] Outpt Diag [id number] Amarjit 03/20 03/21 [facility] [place] [facility] [id number] TRAUMA 03/22 [facility] [place], operated by [facility] Procedures Procedure Code Date Perfomer Comments Source Appendix operation [id number] [facility] [place] Breast [id number] [facility] [place] LASIK [id number] [facility] [place] Appendix operation [id number] [facility] Breast [id number] [facility] LASIK [id number] [facility] Assessment and Plan No Data Provided for This Section Plan of Care No Data Provided for This Section Social History Social History Date Source Social History TypeResponse 03/09/2017 [facility] Jessica Alcohol Current, Type Wine. Frequency: Daily. Previous treatment: None. Smoking Status Former smoker; Exposure to Tobacco Smoke None; Cigarette Smoking Last 365 Days No; Reg Smoking Cessation Counseling No Social History TypeResponse 03/09/2017 [facility] Alcohol Current, Type Wine. Frequency: Daily. Previous treatment: None. Smoking Status Former smoker; Exposure to Tobacco Smoke None; Cigarette Smoking Last 365 Days No; Reg Smoking Cessation Counseling No Family History No Data Provided for This Section Advance Directives No Data Provided for This Section Functional Status No Data Provided for This Section
--- NOTE | 2019-03-15 09:58 | RAD REPORT ---
EXAM DESCRIPTION: CT - Ct Stroke Brain Wo Cont - 03/15/2019 9:47 am CLINICAL HISTORY: Numbness/weakness COMPARISON: 2017 TECHNIQUE: Computed axial tomography of the head was obtained. All CT scans are performed using dose optimization technique as appropriate and may include automated exposure control or mA/KV adjustment according to patient size. FINDINGS: An intracranial bleed is not seen . The ventricles are normal in caliber. No extra-axial fluid collection is noted. Prominent cerebral atrophy Mild low-density within periventricular, deep and subcortical white matter likely ischemic changes s econdary to small vessel disease Fluid within the sinuses/ mastoids is not seen. IMPRESSION: No acute intracranial abnormality is seen. If patient's symptoms persist MRI of the bra in would be recommended. Dr Velasquez of the emergency room was notified at 9:44 a.m. March 15, 2019
[2019-03-15 10:07] LABS: BUN Blood Urea Nitrogen 7 mg/dL (7-18); Bicarbonate 27 mmol/L (21-32); Glucose Level 73 mg/dL (74-106); Potassium 4.1 mmol/L (3.5-5.1); Sodium Level 141 mmol/L (136-145)
[2019-03-15 10:11] LABS: Absolute Lymphocytes (CBC) 1.7 K/uL (0.7-4.9); Basophils % 0.9 % (0-1.3); Eosinophils % 3.4 % (0-4.4); Hematocrit 38.2 % (36.0-45.0); Lymphocytes % 50.5 % (15.3-44.8); MPV 8.9 fL (7.6-11.3); Monocytes % 9.4 % (3.3-12.3)
[2019-03-15 10:13] LABS: Protime INR 0.99
[2019-03-15 10:42] LABS: Blood Morphology Comment NOT SEEN (NOT SEEN); Platelet Estimate ADEQ
--- NOTE | 2019-03-15 10:48 | ER ---
Nurse's Notes [facility] Name: Shelby Rivas Age: 63 yrs Sex: Female : 1955 Arrival Date: 03/15/2019 Time: 09:25 Bed 15 Private MD: Kaiden Coker Diagnosis: Cerebral infarction Presentation: 03/15 09:30 Presenting complaint: Patient states: Had a fall from a couple weeks ago, denies head sg injury but in a picture showed to me there was bruising under the eyes noted, pt denied any neuro changes until last night at around midnight, reports having numbness and inability to move the right arm. pt speech pattern abnormal per the pt family/spouse. Transition of care: patient was not received from another setting of care. Onset of symptoms was March 15, 2019. Risk Assessment: Do you want to hurt yourself or someone else? Patient reports no desire to harm self or others. Initial Sepsis Screen: Does the patient meet any 2 criteria? No. Patient's initial sepsis screen is negative. Does the patient have a suspected source of infection? No. Patient's initial sepsis screen is negative. Care prior to arrival: None. 09:30 Method Of Arrival: Ambulatory sg 09:30 Acuity: SCOUT 2 sg Historical: - Allergies: 09:46 PENICILLINS; sg - PMHx: 09:46 alocholism; Hypertension; sg - PSHx: 09:46 Tonsillectomy; Appendectomy; breast augmentation; sg - Immunization history:: Adult Immunizations up to date. - Social history:: Smoking status: Patient/guardian denies using tobacco. - Ebola Screening: : Patient negative for fever greater than or equal to 101.5 degrees Fahrenheit, and additional compatible Ebola Virus Disease symptoms Patient denies exposure to infectious person Patient denies travel to an Ebola-affected area in the 21 days before illness onset No symptoms or risks identified at this time. Screenin:42 VAN Screening: Arm Drift: Patient shows no arm weakness. Patient is VAN negative. sg 09:47 Abuse screen: Denies threats or abuse. Denies injuries from another. Nutritional sg screening: No deficits noted. Tuberculosis screening: No symptoms or risk factors identified. Never had TB. Fall Risk None identified. 10:50 The patient has not been NPO before screening. The patient is alert, able to follow sg commands. The patient does not exhibit slurred or garbled speech The patient is not exhibiting difficulty speaking. The patient does not exhibit difficulty understanding words. The patient is able to swallow own secretions with no drooling or need for suction. Patient tolerated one teaspoon of water. No drooling, immediate coughing, gurgling, or clearing of the throat was noted. The patient tolerated 90mL of water. No drooling, immediate coughing, gurgling, or clearing of the throat was noted. The patient passed the bedside swallow screening. Oral medications may be given as ordered. Contact Physician for further diet orders. Provider notified of bedside swallow screening results: Johnathon Velasquez MD. Assessment: 09:34 Reassessment: a code stroke has been called. sg 09:40 General: Appears in no apparent distress. well groomed, well developed, well nourished, sg Behavior is calm, cooperative, appropriate for age. Pain: Denies pain. Neuro: Reports numbness in right cheek, mouth, right jaw and right arm. Cardiovascular: Patient's skin is warm and dry. Chest pain is denied. Respiratory: Airway is patent Respiratory effort is even, unlabored, Respiratory pattern is regular, symmetrical. GI: Abdomen is flat, non-distended. : No signs and/or symptoms were reported regarding the genitourinary system. EENT: No signs and/or symptoms were reported regarding the EENT system. Derm: Skin is pink, warm \T\ dry. Musculoskeletal: Circulation, motion, and sensation intact. Range of motion: intact in all extremities, Swelling absent Reports numbness in right arm and right leg, and right side of face. 10:12 Reassessment: Patient appears in no apparent distress at this time. Patient and/or sg family updated on plan of care and expected duration. Pain level reassessed. Patient is alert, oriented x 3, equal unlabored respirations, skin warm/dry/pink. Patient states symptoms have not improved. Vital Signs: 09:32 BP 177 / 107; Pulse 76; Resp 17 S; Temp 97.2; Pulse Ox 100% on R/A; sg 10:51 BP 134 / 86; Pulse 70; Resp 17; Pulse Ox 96% on R/A; sg 11:32 BP 112 / 83; Pulse 73; Resp 16; Temp 97.5(TE); Pulse Ox 98% on R/A; mh5 NIH Stroke Scale Scores: 09:42 NIHSS Score: 2 sg 10:32 NIHSS Score: 1 ED Course: 09:25 Patient arrived in ED. ag5 09:25 Kaiden Coker MD is Private Physician. ag5 09:25 Nic Morin, RN is Primary Nurse. bp 09:36 Primary Nurse role handed off by Nic Morin RN sg 09:36 Jovi Mendiola RN is Primary Nurse. sg 09:39 Patient moved back from CT. sg 09:43 Inserted saline lock: 20 gauge in right antecubital area, using aseptic technique. hb Blood collected. 09:43 Initial lab(s) drawn, by me, sent to lab. sg 09:45 CT Stroke Brain w/o Contrast In Process Unspecified. EDMS 09:45 CT completed. Patient tolerated procedure well. Patient moved back from CT. bq 09:46 Triage completed. sg 09:46 Johnathon Velasquez MD is Attending Physician. gs 09:47 Arm band placed on. sg 10:07 Stroke CXR 1 View In Process Unspecified. EDMS 11:25 Urine collected: clean catch specimen, clear. sg Administered Medications: No medications were administered Point of Care Testing: Blood Glucose: 09:43 Blood Glucose: 74 mg/dL; hb Ranges: Outcome: 10:47 ER care complete, transfer ordered by . gs 11:32 Transferred Note: report given to ERNESTINE Alcantara sg 11:58 Patient left the ED. hb NIH Stroke Scale - NIH Stroke Score Date: 03/15/2019 Time: 09:42 Total Score = 2 1a. Level of Consciousness (LOC) - 0(Alert) 1b. Level of Consciousness (LOC) (Year \T\ Age) - 0(Both) 1c. LOC Commands (Open \T\ Closes Eyes/Offal Worker) - 0(Both) 2. Best Gaze (Lateral Gaze Paresis) - 0(Normal) 3. Visual Field Loss - 0(No visual loss) 4. Facial Palsy - 0(Normal) 5a. Left Arm: Motor (10-second hold) - 0(No drift) 5b. Right Arm: Motor (10-second hold) - 0(No drift) 6a. Left Leg: Motor (5-second hold - always test supine) - 0(No drift) 6b. Right Leg: Motor (5-second hold - always test supine) - 0(No drift) 7. Limb Ataxia (finger/nose \T\ heel/baez - test with eyes open) - 0(Absent) 8. Sensory Loss (pinprick arms/legs/face) - 1(Mild to moderate loss) 9. Best Language: Aphasia (description/naming/reading) - 1(Mild to moderate aphasia) 10. Dysarthria (speech clarity - read or repeat words) - 0(Normal) 11. Extinction and Inattention (visual/tactile/auditory/spatial/personal) - 0(No abnormality) Initials: NIH Stroke Scale - NIH Stroke Score Date: 03/15/2019 Time: 10:32 Total Score = 1 1a. Level of Consciousness (LOC) - 0(Alert) 1b. Level of Consciousness (LOC) (Year \T\ Age) - 0(Both) 1c. LOC Commands (Open \T\ Closes Eyes/Offal Worker) - 0(Both) 2. Best Gaze (Lateral Gaze Paresis) - 0(Normal) 3. Visual Field Loss - 0(No visual loss) 4. Facial Palsy - 0(Normal) 5a. Left Arm: Motor (10-second hold) - 0(No drift) 5b. Right Arm: Motor (10-second hold) - 0(No drift) 6a. Left Leg: Motor (5-second hold - always test supine) - 0(No drift) 6b. Right Leg: Motor (5-second hold - always test supine) - 0(No drift) 7. Limb Ataxia (finger/nose \T\ heel/baez - test with eyes open) - 0(Absent) 8. Sensory Loss (pinprick arms/legs/face) - 1(Mild to moderate loss) 9. Best Language: Aphasia (description/naming/reading) - 0(No aphasia) 10. Dysarthria (speech clarity - read or repeat words) - 0(Normal) 11. Extinction and Inattention (visual/tactile/auditory/spatial/personal) - 0(No abnormality) Initials: Signatures: Dispatcher [employer] EDJovi Almazan RN RN sg Quilty, Betty bq Baxter, Heather, RN RN hb Martinez, Maria 5 Johnathon Velasquez MD MD gs Peltier, Brian, RN RN bp Gaskin, Ajare ag5 Corrections: (The following items were deleted from the chart) 10:18 09:30 Presenting complaint: Patient states: Had a fall from a couple weeks ago, sg denies head injury but in a picture showed to me there was bruising under the eyes noted, pt denied any neuro changes until last night at around midnight, reports having numbness and inability to move the right arm. pt speech pattern sg
--- NOTE | 2019-03-15 10:48 | EDPHYS ---
Physician Documentation [facility] Name: Shelby Rivas Age: 63 yrs Sex: Female : 1955 Arrival Date: 03/15/2019 Time: 09:25 Bed 15 Private MD: Kaiden Coker ED Physician Johnathon Velasquez HPI: 03/15 10:32 This 63 yrs old Female presents to ER via Ambulatory with complaints of gs Numbness, Numbness Of Arm. 10:32 The patient's problem is reported as paresthesias, in right upper extremity, in right gs lower extremity, in right side of face, weakness. Onset: The symptoms/episode began/occurred today, at 00:00. Duration: The episode is continuous. Context: occurred at home. Associated signs and symptoms: Pertinent negatives: chest pain, combativeness, confusion. Severity of symptoms: At their worst the symptoms were severe in the emergency department the symptoms have improved moderately. The patient has not experienced similar symptoms in the past. Historical: - Allergies: 09:46 PENICILLINS; sg - PMHx: 09:46 alocholism; Hypertension; sg - PSHx: 09:46 Tonsillectomy; Appendectomy; breast augmentation; sg - Immunization history:: Adult Immunizations up to date. - Social history:: Smoking status: Patient/guardian denies using tobacco. - Ebola Screening: : Patient negative for fever greater than or equal to 101.5 degrees Fahrenheit, and additional compatible Ebola Virus Disease symptoms Patient denies exposure to infectious person Patient denies travel to an Ebola-affected area in the 21 days before illness onset No symptoms or risks identified at this time. ROS: 10:32 All other systems are negative. gs Exam: 10:32 Head/Face: Normocephalic, atraumatic. Eyes: Pupils equal round and reactive to light, gs extra-ocular motions intact. Lids and lashes normal. Conjunctiva and sclera are non-icteric and not injected. Cornea within normal limits. Periorbital areas with no swelling, redness, or edema. ENT: Nares patent. No nasal discharge, no septal abnormalities noted. Tympanic membranes are normal and external auditory canals are clear. Oropharynx with no redness, swelling, or masses, exudates, or evidence of obstruction, uvula midline. Mucous membranes moist. Neck: Trachea midline, no thyromegaly or masses palpated, and no cervical lymphadenopathy. Supple, full range of motion without nuchal rigidity, or vertebral point tenderness. No Meningismus. Chest/axilla: Normal chest wall appearance and motion. Nontender with no deformity. No lesions are appreciated. Cardiovascular: Regular rate and rhythm with a normal S1 and S2. No gallops, murmurs, or rubs. Normal PMI, no JVD. No pulse deficits. Respiratory: Lungs have equal breath sounds bilaterally, clear to auscultation and percussion. No rales, rhonchi or wheezes noted. No increased work of breathing, no retractions or nasal flaring. Abdomen/GI: Soft, non-tender, with normal bowel sounds. No distension or tympany. No guarding or rebound. No evidence of tenderness throughout. Back: No spinal tenderness. No costovertebral tenderness. Full range of motion. Skin: Warm, dry with normal turgor. Normal color with no rashes, no lesions, and no evidence of cellulitis. MS/ Extremity: Pulses equal, no cyanosis. Neurovascular intact. Full, normal range of motion. 10:32 Constitutional: The patient appears alert, awake. 10:32 Neuro: Orientation: is normal, Cranial nerves: CN II- XII are normal as tested, Cerebellar function: normal finger to nose testing, Motor: moves all fours, strength is 5/5 in all extremities, Sensation: pin prick is decreased in the right arm, face and leg. Vital Signs: 09:32 BP 177 / 107; Pulse 76; Resp 17 S; Temp 97.2; Pulse Ox 100% on R/A; sg 10:51 BP 134 / 86; Pulse 70; Resp 17; Pulse Ox 96% on R/A; sg 11:32 BP 112 / 83; Pulse 73; Resp 16; Temp 97.5(TE); Pulse Ox 98% on R/A; mh5 NIH Stroke Scale Scores: 09:42 NIHSS Score: 2 sg 10:32 NIHSS Score: 1 gs MDM: 09:46 Patient medically screened. 10:32 Differential diagnosis: CVA, TIA, paralysis, metabolic disorder. Data reviewed: vital gs signs, nurses notes, lab test result(s), EKG, radiologic studies. Response to treatment: the patient's symptoms have mildly improved after treatment. 10:41 ED course: no tpa outside of window > 4.5 hours. 10:47 Counseling: I had a detailed discussion with the patient and/or guardian regarding: the historical points, exam findings, and any diagnostic results supporting the discharge/admit diagnosis, the presence of at least one elevated blood pressure reading (>120/80) during this emergency department visit, the need for further work-up and treatment in the hospital. 03/15 09:46 Order name: Glucose, Ancillary Testing; Complete Time: 10:19 [facility] 03/15 09:53 Order name: Basic Metabolic Panel; Complete Time: 10:19 03/15 09:53 Order name: CBC with Diff 03/15 09:53 Order name: Protime (+inr); Complete Time: 10:28 03/15 09:53 Order name: Ptt, Activated; Complete Time: 10: 03/15 10:41 Order name: Urine Microscopic Only 03/15 09:37 Order name: CT Stroke Brain w/o Contrast; Complete Time: 10: 03/15 09:53 Order name: Stroke CXR 1 View 03/15 09:53 Order name: EKG; Complete Time: 09:55 03/15 09:53 Order name: Accucheck; Complete Time: 10: 03/15 09:53 Order name: Cardiac monitoring; Complete Time: 10: 03/15 10:43 Order name: Manual Differential [facility] 03/15 11:24 Order name: Urine Dipstick--Ancillary (enter results) wi 03/15 11:46 Order name: Urine Culture [facility] 03/15 09:53 Order name: EKG - Nurse/Tech; Complete Time: 10:11 03/15 09:53 Order name: IV Saline Lock; Complete Time: 10:11 03/15 09:53 Order name: Labs collected and sent; Complete Time: 10:11 03/15 09:53 Order name: NPO; Complete Time: 10:11 03/15 09:53 Order name: O2 Per Protocol; Complete Time: 10:11 03/15 09:53 Order name: O2 Sat Monitoring; Complete Time: 10: 03/15 10:41 Order name: Urine Dipstick-Ancillary (obtain specimen); Complete Time: 11:55 gs Administered Medications: No medications were administered Point of Care Testing: Blood Glucose: 09:43 Blood Glucose: 74 mg/dL; hb Ranges: Critical Glucose Levels:Adult <50 mg/dl or >400 mg/dl <40 mg/dl or >180 mg/dl Disposition: 03/15/19 10:47 Transfer ordered to [facility]. Diagnosis is Cerebral infarction. - Reason for transfer: Higher level of care. - Accepting physician is nash. - Condition is Stable. - Problem is new. - Symptoms have improved. NIH Stroke Scale - NIH Stroke Score Date: 03/15/2019 Time: 09:42 Total Score = 2 1a. Level of Consciousness (LOC) - 0(Alert) 1b. Level of Consciousness (LOC) (Year \T\ Age) - 0(Both) 1c. LOC Commands (Open \T\ Closes Eyes/Diamond Broker) - 0(Both) 2. Best Gaze (Lateral Gaze Paresis) - 0(Normal) 3. Visual Field Loss - 0(No visual loss) 4. Facial Palsy - 0(Normal) 5a. Left Arm: Motor (10-second hold) - 0(No drift) 5b. Right Arm: Motor (10-second hold) - 0(No drift) 6a. Left Leg: Motor (5-second hold - always test supine) - 0(No drift) 6b. Right Leg: Motor (5-second hold - always test supine) - 0(No drift) 7. Limb Ataxia (finger/nose \T\ heel/baez - test with eyes open) - 0(Absent) 8. Sensory Loss (pinprick arms/legs/face) - 1(Mild to moderate loss) 9. Best Language: Aphasia (description/naming/reading) - 1(Mild to moderate aphasia) 10. Dysarthria (speech clarity - read or repeat words) - 0(Normal) 11. Extinction and Inattention (visual/tactile/auditory/spatial/personal) - 0(No abnormality) Initials: NIH Stroke Scale - NIH Stroke Score Date: 03/15/2019 Time: 10:32 Total Score = 1 1a. Level of Consciousness (LOC) - 0(Alert) 1b. Level of Consciousness (LOC) (Year \T\ Age) - 0(Both) 1c. LOC Commands (Open \T\ Closes Eyes/Diamond Broker) - 0(Both) 2. Best Gaze (Lateral Gaze Paresis) - 0(Normal) 3. Visual Field Loss - 0(No visual loss) 4. Facial Palsy - 0(Normal) 5a. Left Arm: Motor (10-second hold) - 0(No drift) 5b. Right Arm: Motor (10-second hold) - 0(No drift) 6a. Left Leg: Motor (5-second hold - always test supine) - 0(No drift) 6b. Right Leg: Motor (5-second hold - always test supine) - 0(No drift) 7. Limb Ataxia (finger/nose \T\ heel/baez - test with eyes open) - 0(Absent) 8. Sensory Loss (pinprick arms/legs/face) - 1(Mild to moderate loss) 9. Best Language: Aphasia (description/naming/reading) - 0(No aphasia) 10. Dysarthria (speech clarity - read or repeat words) - 0(Normal) 11. Extinction and Inattention (visual/tactile/auditory/spatial/personal) - 0(No abnormality) Initials: Signatures: Dispatcher [employer] EDMS Jovi Mendiola RN RN Susy Quinteros RN RN Johnathon Velasquez MD MD Corrections: (The following items were deleted from the chart) 11:58 10:47 03/15/2019 10:47 Transfer ordered to [facility]. Diagnosis is Cerebral infarction. Reason for transfer: Higher level of care. Accepting physician is nash. Condition is Stable. Problem is new. Symptoms have improved.
--- NOTE | 2019-03-15 11:28 | RAD REPORT ---
EXAM DESCRIPTION: [place] Single View03/15/2019 10:06 am CLINICAL HISTORY: Chest pain COMPARISON: 2016 FINDINGS: The lungs appear clear of acute infiltrate. The heart is normal size IMPRESSION: No acute abnormalities displayed
[2019-03-15 11:43] LABS: Urine Bacteria <20 /HPF (<20); Urine RBC <5 /HPF (NONE SEEN)
[2019-03-15 11:44] LABS: Urine Culture Reflex Order REFLEXED
[2019-03-15 13:15] LABS: Urine Blood TRACE (NEG); Urine Glucose NEGATIVE (NEG); Urine Protein 2+ (NEG)
--- NOTE | 2019-03-16 09:12 | EKG ---
Test Date: 2019-03-15 Test Time: 09:49:06 [employer] Consultant: RAMIRO MEASUREMENT RESULTS: Intervals: Rate: 73 CT: 174 QRSD: 82 QT: 412 QTc: 453 [place]: P: 40 CT: 174 QRS: 8 T: 61 INTERPRETIVE STATEMENTS: Normal sinus rhythm Low voltage QRS Borderline ECG Compared to ECG 03/23/2014 09:28:30 Low QRS voltage now present Electronically Signed On 03-16-19 09:10:48 CDT by Narendra Presley
== END 2019-03-15 11:58 | disposition short-term general hospital (02) ==
LOC: ER 09:22
DX: I63.9 Cerebral infarction, unspecified (principal); I10 Essential (primary) hypertension; R29.702 NIHSS score 2; F10.20 Alcohol dependence, uncomplicated; Z88.0 Allergy status to penicillin; Z98.82 Breast implant status
CPT/HCPCS: 36415; 70450; 71045; 80048; 81003; 81015; 82962; 85025; 85610; 85730; 87086; 87088; 93005; 99285

== ENCOUNTER 2021-02-04 12:17 | Emergency (ER) | payer OTHER, BC ==
--- NOTE | 2021-02-04 14:18 | RAD REPORT ---
EXAM DESCRIPTION: CT - Head Brain Wo Cont - 02/04/2021 2:10 pm CLINICAL HISTORY: DIZZINESS Headache, drowsiness COMPARISON: Ct Stroke Brain Wo Cont dated 03/15/2019 TECHNIQUE: All CT scans are performed using dose optimization technique as appropriate and may inclu de automated exposure control or mA/KV adjustment according to patient size. FINDINGS: No intracranial hemorrhage, hydrocephalus or extra-axial fluid collection.Mild diffuse bra in atrophy.No areas of brain edema or evidence of midline shift. The paranasal sinuses and mastoids are clear. The calvarium is intact. IMPRESSION: No acute intracranial abnormality.
[2021-02-04 14:33] LABS: BUN Blood Urea Nitrogen 17 mg/dL (7-18); Bicarbonate 25 mmol/L (21-32); Glucose Level 80 mg/dL (74-106); Potassium 3.7 mmol/L (3.5-5.1); Sodium Level 134 mmol/L (136-145)
[2021-02-04 14:34] LABS: Absolute Lymphocytes (CBC) 1.4 K/uL (0.7-4.9); Basophils % 0.7 % (0-1.3); Hematocrit 38.3 % (36.0-45.0); Lymphocytes % 22.7 % (15.3-44.8); MPV 8.3 fL (7.6-11.3)
[2021-02-04] MEDS ORDERED: FAMOTIDINE 20 MG/2 ML VIAL IV ONE (14:36)
[2021-02-04] MEDS ORDERED: ONDANSETRON 4 MG/2 ML VIAL ONE (14:36)
[2021-02-04] MEDS ORDERED: NA CHLORIDE 0.9% 1,000 ML ONE (16:24)
--- NOTE | 2021-02-04 18:12 | ER ---
Nurse's Notes [facility] Name: Shelby Rivas Age: 65 yrs Sex: Female : 1955 Arrival Date: 02/04/2021 Time: 12:19 Bed 13 Private MD: Diagnosis: Orthostatic hypotension;Weakness;Dizziness and giddiness;Nausea Presentation: 02/04 12:27 Chief complaint: Patient states: Pt stated," all my problems started after my retina kg detachment sx 2 weeks ago. I started having dizziness and motion sickness. Yesterday morning at 0800 I took the dogs out and started feeling weak then started vomiting around 11 yesterday. Last night at 2300 I fell and hit my head and had LOC, my found me on the bathroom floor. Then this morning I was on the toilet and had LOC again but my caught me." stated, "She had a lot of bleeding from her head when she fell last night.". Care prior to arrival: None. Mechanism of Injury: No Mechanism of Injury. 12:27 Acuity: SCOUT 3 kg 12:27 Method Of Arrival: Wheelchair kg Historical: - Allergies: 12:39 PENICILLINS; kg 12:39 Bees; kg 12:39 Benadryl; kg 12:39 Tape; kg - PMHx: 12:39 Migraines; kg - PSHx: 12:39 right shoulder sx; Right eye retina detachment; breast augmentation; cataracts; kg - Social history:: Patient uses alcohol, history of alcohol abuse. pt states she has not had a drink since April 2020. Screenin:25 Abuse screen: Denies threats or abuse. Denies injuries from another. Nutritional tr6 screening: No deficits noted. Tuberculosis screening: No symptoms or risk factors identified. The patient passed the bedside swallow screening. Oral medications may be given as ordered. Contact Physician for further diet orders. Fall Risk Fall in past 12 months (25 points). Assessment: 12:27 General: Appears in no apparent distress. Behavior is calm, cooperative, appropriate kg for age, quiet. Pain: Complains of pain in posterior aspect of left lateral abdomen and anterior aspect of left lateral abdomen Pain currently is 8 out of 10 on a pain scale. at worst was 10 out of 10 on a pain scale. level that patient reports is acceptable is 3 out of 10 on a pain scale. 16:15 Reassessment: Patient appears in no apparent distress at this time. Patient and/or hb family updated on plan of care and expected duration. Pain level reassessed. Patient is alert, oriented x 3, equal unlabored respirations, skin warm/dry/pink. 17:02 Reassessment: Orthostatics ordered, NS bolus still infusing at this time. Dr. Kiser hb aware. 17:35 Reassessment: Patient appears in no apparent distress at this time. Patient and/or hb family updated on plan of care and expected duration. Pain level reassessed. Patient is alert, oriented x 3, equal unlabored respirations, skin warm/dry/pink. 18:10 Reassessment: Patient appears in no apparent distress at this time. Patient and/or hb family updated on plan of care and expected duration. Pain level reassessed. Patient is alert, oriented x 3, equal unlabored respirations, skin warm/dry/pink. Patient states feeling better. Patient states symptoms have improved. Vital Signs: 14:24 BP 141 / 99 Supine; Pulse 72; Resp 18; Pulse Ox 96% on R/A; tr6 14:24 BP 142 / 105 Sitting; Pulse 93; Resp 18; Pulse Ox 100% on R/A; tr6 14:24 BP 128 / 93 Standing; Pulse 117; Resp 18; Pulse Ox 100% on R/A; tr6 15:30 Temp 97.9(O); tr6 17:36 BP 131 / 92; Pulse 75; Resp 15; Pulse Ox 99% on R/A; hb 17:55 BP 135 / 84 Supine; Pulse 89; hb 18:00 BP 152 / 88 Sitting; Pulse 86; hb 18:05 BP 145 / 93 Standing; Pulse 84; hb ED Course: 12:19 Patient arrived in ED. as 12:34 Triage completed. kg 12:41 Benedicto Kiser MD is Attending Physician. kdr 12:45 Marsha Adames, ERNESTINE is Primary Nurse. tr6 14:05 Initial lab(s) drawn, by me, sent to lab. Inserted saline lock: 20 gauge in right dh3 antecubital area, using aseptic technique. 14:09 CT Head Brain wo Cont In Process Unspecified. EDMS 14:25 Resting quietly. Awaiting re-evaluation by ER provider. tr6 14:25 No provider procedures requiring assistance completed. tr6 14:25 Patient has correct armband on for positive identification. Fall risk band placed. Bed tr6 in low position. Call light in reach. Side rails up X2. Pulse ox on. NIBP on. Door closed. Noise minimized. Warm blanket given. Diet: Patient is NPO. 15:51 Chem 7 Sent. tr6 15:51 CBC with Diff Sent. tr6 18:27 IV discontinued, intact, bleeding controlled, No redness/swelling at site. hb Administered Medications: 14:23 Drug: Pepcid (famotidine) 20 mg Route: IVP; Site: right antecubital; tr6 15:33 Follow up: Response: No adverse reaction tr6 14:23 Drug: Zofran (Ondansetron) 4 mg Route: IVP; Site: right antecubital; tr6 15:33 Follow up: Response: No adverse reaction; Nausea is decreased tr6 16:04 Drug: NS 0.9% 1000 ml Route: IV; Rate: 1 bolus; Site: right antecubital; hb 17:45 Follow up: Response: No adverse reaction; IV Status: Completed infusion; IV Intake: hb 1000ml Intake: 17:45 IV: 1000ml; Total: 1000ml. hb Outcome: 18:12 Discharge ordered by . kdr 18:27 Discharged to home ambulatory, with significant other. hb 18:27 Condition: stable 18:27 Discharge instructions given to patient, significant other, Instructed on discharge instructions, follow up and referral plans. medication usage, Demonstrated understanding of instructions, follow-up care, medications, Prescriptions given X 1. 18:28 Patient left the ED. hb Signatures: Dispatcher [employer] EDMS Benedicto Kiser MD MD kdr Martinez, Amelia as Baxter, Heather, RN RN Genet [facility] Marsha Adames RN RN tr6 Augusta Coffman RN RN kg
--- NOTE | 2021-02-04 18:12 | EDPHYS ---
Physician Documentation [facility] Name: Shelby Rivas Age: 65 yrs Sex: Female : 1955 Arrival Date: 02/04/2021 Time: 12:19 Bed 13 Private MD: ED Physician Benedicto Kiser HPI: 02/04 18:56 This 65 yrs old Female presents to ER via Wheelchair with complaints of Fall kdr Injury, Vision Problem, Dizziness, Nausea. 18:56 Details of fall: The patient fell from an upright position, while walking. Onset: The kdr symptoms/episode began/occurred gradually, 2 week(s) ago. Associated injuries: The patient sustained injury to the head. Severity of symptoms: At their worst the symptoms were mild, in the emergency department the symptoms are unchanged. The patient has not experienced similar symptoms in the past. The patient has been recently seen by a physician:. Since the patient had eye surgery a few weeks ago, she has had poor depth perception and dizziness. This has caused her to have a poor appetite and also to fall occasionally. Several days ago, she fell and hit her head with a brief LOC. Since then she has continued to be dizzy and continued unsteadiness when walking. Historical: - Allergies: 12:39 PENICILLINS; kg 12:39 Bees; kg 12:39 Benadryl; kg 12:39 Tape; kg - PMHx: 12:39 Migraines; kg - PSHx: 12:39 right shoulder sx; Right eye retina detachment; breast augmentation; cataracts; kg - Social history:: Patient uses alcohol, history of alcohol abuse. pt states she has not had a drink since April 2020. ROS: 18:56 Constitutional: Negative for fever, chills, and weight loss, Eyes: Negative for injury, kdr pain, redness, and discharge, Neck: Negative for injury, pain, and swelling, Cardiovascular: Negative for chest pain, palpitations, and edema, Respiratory: Negative for shortness of breath, cough, wheezing, and pleuritic chest pain, Abdomen/GI: Negative for abdominal pain, nausea, vomiting, diarrhea, and constipation, Back: Negative for injury and pain, : Negative for injury, bleeding, discharge, and swelling, MS/Extremity: Negative for injury and deformity, Skin: Negative for injury, rash, and discoloration, Psych: Negative for depression, anxiety, suicide ideation, homicidal ideation, and hallucinations, Allergy/Immunology: Negative for hives, rash, and allergies, Endocrine: Negative for neck swelling, polydipsia, polyuria, polyphagia, and marked weight changes, Hematologic/Lymphatic: Negative for swollen nodes, abnormal bleeding, and unusual bruising. 18:56 Neuro: Positive for dizziness, loss of consciousness, syncope, visual changes, weakness, Negative for altered mental status, gait disturbance, numbness, tingling. Exam: 18:56 Constitutional: This is a well developed, well nourished patient who is awake, alert, kdr and in no acute distress. Eyes: Pupils equal round and reactive to light, extra-ocular motions intact. Lids and lashes normal. Conjunctiva and sclera are non-icteric and not injected. Cornea within normal limits. Periorbital areas with no swelling, redness, or edema. ENT: Nares patent. No nasal discharge, no septal abnormalities noted. Tympanic membranes are normal and external auditory canals are clear. Oropharynx with no redness, swelling, or masses, exudates, or evidence of obstruction, uvula midline. Mucous membranes moist. Neck: Trachea midline, no thyromegaly or masses palpated, and no cervical lymphadenopathy. Supple, full range of motion without nuchal rigidity, or vertebral point tenderness. No Meningismus. Chest/axilla: Normal chest wall appearance and motion. Nontender with no deformity. No lesions are appreciated. Cardiovascular: Regular rate and rhythm with a normal S1 and S2. No gallops, murmurs, or rubs. Normal PMI, no JVD. No pulse deficits. Respiratory: Lungs have equal breath sounds bilaterally, clear to auscultation and percussion. No rales, rhonchi or wheezes noted. No increased work of breathing, no retractions or nasal flaring. Abdomen/GI: Soft, non-tender, with normal bowel sounds. No distension or tympany. No guarding or rebound. No evidence of tenderness throughout. Back: No spinal tenderness. No costovertebral tenderness. Full range of motion. Skin: Warm, dry with normal turgor. Normal color with no rashes, no lesions, and no evidence of cellulitis. MS/ Extremity: Pulses equal, no cyanosis. Neurovascular intact. Full, normal range of motion. Neuro: Awake and alert, GCS 15, oriented to person, place, time, and situation. Cranial nerves II-XII grossly intact. Motor strength 5/5 in all extremities. Sensory grossly intact. Cerebellar exam normal. Normal gait. Psych: Awake, alert, with orientation to person, place and time. Behavior, mood, and affect are within normal limits. 18:56 Head/face: Noted is abrasion(s), contusion, hematoma, that is mild, of the right occipital area. Vital Signs: 14:24 BP 141 / 99 Supine; Pulse 72; Resp 18; Pulse Ox 96% on R/A; tr6 14:24 BP 142 / 105 Sitting; Pulse 93; Resp 18; Pulse Ox 100% on R/A; tr6 14:24 BP 128 / 93 Standing; Pulse 117; Resp 18; Pulse Ox 100% on R/A; tr6 15:30 Temp 97.9(O); tr6 17:36 BP 131 / 92; Pulse 75; Resp 15; Pulse Ox 99% on R/A; hb 17:55 BP 135 / 84 Supine; Pulse 89; hb 18:00 BP 152 / 88 Sitting; Pulse 86; hb 18:05 BP 145 / 93 Standing; Pulse 84; hb MDM: 18:12 Patient medically screened. kdr 18:56 Data reviewed: vital signs, nurses notes, lab test result(s), radiologic studies. kdr Counseling: I had a detailed discussion with the patient and/or guardian regarding: the historical points, exam findings, and any diagnostic results supporting the discharge/admit diagnosis, lab results, radiology results, the need for outpatient follow up. Response to treatment: the patient's symptoms have markedly improved after treatment, the patient's condition has returned to base line, patient is well hydrated. Special discussion: I discussed with the patient/guardian in detail that at this point there is no indication for admission to the hospital. It is understood, however, that if the symptoms persist or worsen the patient needs to return immediately for re-evaluation. 02/04 13:53 Order name: CBC with Diff kdr 02/04 13:53 Order name: Chem 7 kdr 02/04 13:53 Order name: CT Head Brain wo Cont; Complete Time: 15:46 kdr 02/04 13:54 Order name: CBC with Automated Diff; Complete Time: 15:46 EDMS 02/04 13:54 Order name: Basic Metabolic Panel; Complete Time: 15:46 EDID 02/04 13:53 Order name: Orthostatic Blood Pressure; Complete Time: 14:23 kdr 02/04 15:58 Order name: Orthostatic Blood Pressure: Repeat after bolus; Complete Time: 18:10 kdr Administered Medications: 14:23 Drug: Pepcid (famotidine) 20 mg Route: IVP; Site: right antecubital; tr6 15:33 Follow up: Response: No adverse reaction tr6 14:23 Drug: Zofran (Ondansetron) 4 mg Route: IVP; Site: right antecubital; tr6 15:33 Follow up: Response: No adverse reaction; Nausea is decreased tr6 16:04 Drug: NS 0.9% 1000 ml Route: IV; Rate: 1 bolus; Site: right antecubital; hb 17:45 Follow up: Response: No adverse reaction; IV Status: Completed infusion; IV Intake: hb 1000ml Disposition: 02/04/21 18:12 Discharged to Home. Impression: Orthostatic hypotension, Weakness, Dizziness and giddiness, Nausea. - Condition is Stable. - Discharge Instructions: Nausea and Vomiting, Adult, Orthostatic Hypotension, Weakness, [id number], Dehydration, Adult, [id number], Dizziness, [id number]. - Prescriptions for Zofran 4 mg Oral Tablet - take 1 tablet by ORAL route every 4-6 hours As needed; 12 tablet. - Medication Reconciliation Form, Thank You Letter form. - Follow up: Private Physician; When: 2 - 3 days; Reason: If symptoms return, Further diagnostic work-up, Recheck today's complaints, Continuance of care, Re-evaluation by your physician. - Problem is new. - Symptoms have improved. Signatures: Dispatcher [employer] EDID Benedicto Kiser MD MD kdr Susy Quinteros RN RN Marsha Adames RN RN tr6 Augusta Coffman RN RN kg Corrections: (The following items were deleted from the chart) 18:28 18:12 02/04/2021 18:12 Discharged to Home. Impression: Orthostatic hypotension; hb Weakness; Dizziness and giddiness; Nausea. Condition is Stable. Forms are Medication Reconciliation Form, Thank You Letter, Antibiotic Education, Prescription Opioid Use. Follow up: Private Physician; When: 2 - 3 days; Reason: If symptoms return, Further diagnostic work-up, Recheck today's complaints, Continuance of care, Re-evaluation by your physician. Problem is new. Symptoms have improved. kdr
[2021-02-04 19:22] VITALS: TEMP 97.9
[2021-02-04 19:24] VITALS: O2SAT 99
[2021-02-04 19:27] VITALS: BP 145/93
== END 2021-02-04 18:28 | disposition home or self-care (01) ==
LOC: ER 12:17
DX: I95.1 Orthostatic hypotension (principal); R42 Dizziness and giddiness; R11.0 Nausea; R53.1 Weakness
CPT/HCPCS: 96361; 85025; 80048; 36415; 70450; 96375; 96374; 99284; J7030; J2405